=== PATIENT | male | born 1930 | race Caucasian/White ===

== ENCOUNTER 2017-04-25 16:33 | Emergency (ER) | payer MEDICARE, OTHER ==
[2017-04-25 17:07] LABS: #Basophils 0.1 thou/uL (0.0-0.2); #Eosinphils 0.2 thou/uL (0.0-0.7); #Monocytes 0.4 thou/uL (0.11-0.59); #Neutrophils 4.7 thou/uL (1.40-6.50); %Eosinophils 3.2 % (0.0-10.0); %Lymphocytes 26.9 % (21.0-51.0); %Monocytes 4.8 % (0.0-10.0); Hematocrit 34.1 % (42.0-52.0); Mean Platelet Volume 6.3 fL (7.4-10.4); Red Blood Cell (RBC) Count 3.62 mill/uL (4.70-6.10); White Blood Cell (WBC) Count 7.3 thou/uL (4.8-10.8)
[2017-04-25 17:18] LABS: Lactic Acid - Sepsis 2.1 mmol/L (0.5-2.2)
[2017-04-25 17:23] LABS: ALT (SGPT) 18 U/L (8-55); AST (SGOT) 21 U/L (5-34); Alkaline Phosphatase 67 U/L (40-150); Anion Gap 15 mmol/L (10-20); BUN (Urea Nitrogen) 15 mg/dL (8.4-25.7); Bilirubin, Total 0.5 mg/dL (0.2-1.2); CK (CPK) 55 U/L (30-200); Calc. Creatinine Clearance 0 mL/min (70-130); Calcium 8.9 mg/dL (7.8-10.44); Carbon Dioxide 21 mmol/L (23-31); Chloride 108 mmol/L (98-107); Estimated GFR-MDRD 73; Globulin 3.2 g/dL (2.4-3.5)
[2017-04-25 17:24] LABS: Troponin I 0.013 ng/mL (< 0.028)
--- NOTE | 2017-04-25 17:55 | RAD ---
PA AND LATERAL VIEWS OF CHEST: DATE: 04/25/2017 COMPARISON: Previous exam from 07/07/2013. HISTORY: Dyspnea. FINDINGS: PA and lateral views of the chest demonstrate some cardiomegaly. Calcification of the aorta is seen . Mild to moderate pulmonary vascular congestion is seen. No evidence of effusions seen. IMPRESSION: Calcification of the aorta as well as pulmonary vascular congestion. POS: [facility]
== END 2017-04-25 18:07 | disposition home or self-care (01) ==
LOC: SCSER 16:33
DX: R07.89 Other chest pain (principal); I11.0 Hypertensive heart disease with heart failure; I50.9 Heart failure, unspecified; I48.91 Unspecified atrial fibrillation; E11.42 Type 2 diabetes mellitus with diabetic polyneuropathy; E78.5 Hyperlipidemia, unspecified; Z92.3 Personal history of irradiation; Z86.73 Personal history of transient ischemic attack (TIA), and cerebral infarction without residual deficits; Z85.46 Personal history of malignant neoplasm of prostate; Z87.891 Personal history of nicotine dependence; Z79.82 Long term (current) use of aspirin; Z79.899 Other long term (current) drug therapy
CPT/HCPCS: 36415; 71020; 80053; 82553; 83605; 83880; 84484; 85025; 87040; 93005; 94760

== ENCOUNTER → 2017-06-04 | Outpatient (CLI) | payer MEDICARE, OTHER | LOC: BICMAMMO 15:12 | DX: N64.4 Mastodynia (principal) | CPT/HCPCS: G0204; G0279; 77066 ==

== ENCOUNTER 2018-04-11 12:42 | Outpatient (CLI) | payer MEDICARE, OTHER ==
--- NOTE | 2018-04-11 14:55 | CT ---
CT OF ABDOMEN PERFORMED WITHOUT CONTRAST ENHANCEMENT: Date: 04/11/18 HISTORY: Follow-up of aneurysm. COMPARISON: 05/12/16. FINDINGS: The lung bases show some emphysematous type change. The liver, spleen, and pancreas regions show no focal abnormalities. Gallbladder has been removed. Right and left adrenal glands are normal in size and appearance. Right and left kidneys are not obstr ucted and normal in size. There is no significant periaortic or mesenteric adenopathy. The slightly saccular aneurysm of the infrarenal aorta, which has a focal saccular outpouching from t he anterior and more right margin of the aorta is stable in appearance as compared to the prior exami [facility] [place]. The maximum measurement is 3.1 cm. This occurs just below the level of the right renal artery and the aorta is normal in caliber, densely calcified below this level. IMPRESSION: 1. Stable saccular infrarenal abdominal aortic aneurysm. 2. Extensive atherosclerosis. POS: [facility]
== END 2018-04-11 12:43 | disposition home or self-care (01) ==
LOC: CT 12:42
PROVIDERS: ATTEND Thoracic Surgery (Cardiothoracic Vascular Surgery)
DX: I71.4 Abdominal aortic aneurysm, without rupture (principal); I70.90 Unspecified atherosclerosis
CPT/HCPCS: 74150

== ENCOUNTER 2018-06-14 13:42 | Outpatient (CLI) | payer MEDICARE, OTHER ==
--- NOTE | 2018-06-14 15:57 | RAD ---
ABDOMEN 1 VIEW: Date: 06/14/18 HISTORY: Diarrhea. Constipation. Abdominal pain. COMPARISON: CT dated 04/11/18. FINDINGS: Evaluation for free air is limited without upright examination. There are no dilated air-filled loops of large or small bowel. Moderate vascular calcifications. Moderate facet arthropathy lower lumbar spine. Right upper quadrant surgical clips. Dense calcifications of the splenic artery. IMPRESSION: No acute intra-abdominal process. No abnormal calcifications projecting over the renal shadows. POS: [facility]
== END 2018-06-14 13:43 | disposition home or self-care (01) ==
LOC: SCSRAD 13:42
PROVIDERS: ATTEND Internal Medicine Gastroenterology
DX: R15.0 Incomplete defecation (principal); R15.2 Fecal urgency
CPT/HCPCS: 74018

== ENCOUNTER 2018-12-05 13:43 | Outpatient (CLI) | payer MEDICARE, OTHER ==
--- NOTE | 2018-12-05 15:05 | CT ---
Exam: ABDOMEN CT WITHOUT CONTRAST: HISTORY: Abdominal aortic aneurysm, without rupture. COMPARISON: 04/11/2018. FINDINGS: Abdomen CT: Lung bases:Patchy groundglass opacities and interstitial prominence may represent a component of marylin a. Heart size: Normal size. Aorta: Atherosclerosis throughout the visualized aorta and aortic bifurcation. There is atheroscleros is of the splenic artery. Dense calcified plaque in both renal artery ostia as well as the proximal right renal artery. Limited and incomplete evaluation due to technique. There is focal outpouching wi th calcification involving the distal abdominal aorta. There appears to be an associated saccular aneurysm. The aneurysmal component measures 1.4 cm mediolateral x 1 cm anterior posterior x 2.5 cm cr anial caudal. No significant change. Solid organs: Limited evaluation by technique. Grossly, no solid organ abnormality. Lymph nodes: No gastrohepatic, retrocrural or periportal lymphadenopathy Gallbladder: Surgically absent. Mesentery: No mass, lymphadenopathy, free air or free fluid Kidneys: Bilaterally no hydronephrosis, nephrolithiasis or perinephric fat stranding. Bilateral visua lized ureters are unremarkable. Alimentary canal: Incomplete evaluation. Limited evaluation due to technique. No evidence of bowel ob struction. Osseous structures: No lytic or blastic lesions IMPRESSION: 1. Essentially stable saccular aneurysm involving the infrarenal abdominal aorta. 2. Extensive atherosclerosis. Transcribed Date/Time: 12/05/2018 3:12 PM
--- NOTE | 2018-12-05 16:37 | ULT ---
EXAM: CAROTID ULTRASOUND: 12/05/18 HISTORY: Occlusion/stenosis of precerebral artery. COMPARISON: None. TECHNIQUE: Cornell scale, color flow, Doppler imaging with spectral waveform analysis performed in the carotid and vertebral arteries. FINDINGS: Exam is extremely limited by body habitus, conditioning and patient position. FINDINGS: RIGHT CAROTID: Small amounts of atherosclerosis in the common carotid artery. Peak systolic velocity of the common carotid artery is 72.7 cm/s. Peak systolic velocity internal carotid artery is 175 cm/ s. Systolic ICA to CCA ratio is 2.4. LEFT CAROTID: There is atherosclerotic disease involving the common carotid and carotid bifurcation. Peak systolic velocity of the common carotid artery is 98.8 cm/s. Peak systolic velocity of the inter nal carotid artery is 87.8 cm/s. Systolic ICA to CCA ratio is 0.89. Neither vertebral artery is appreciated. IMPRESSION: 1. 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 Further evaluation with CT angiogram of the neck is recommended. 2. Nonvisualization of bilateral vertebral arteries. POS: [facility]
== END 2018-12-05 13:44 | disposition home or self-care (01) ==
LOC: BICULT 13:43
PROVIDERS: ATTEND Thoracic Surgery (Cardiothoracic Vascular Surgery)
DX: I65.8 Occlusion and stenosis of other precerebral arteries (principal); I71.4 Abdominal aortic aneurysm, without rupture; I10 Essential (primary) hypertension; I70.0 Atherosclerosis of aorta; I65.21 Occlusion and stenosis of right carotid artery
CPT/HCPCS: 74150; 93880

== ENCOUNTER 2019-03-14 17:17 | Inpatient (IN) | payer MEDICARE, OTHER ==
[~2019-03-14 17:17] MED LIST: ISOVUE-370 76%-LOCM 1 ML ONE
[2019-03-14] MEDS ORDERED: Furosemide 40 MG/4 ML VIAL ONE (17:29)
[2019-03-14 17:41] LABS: #Basophils 0.1 thou/uL (0.0-0.2); #Eosinphils 0.3 thou/uL (0.0-0.7); #Lymphocytes 2.3 thou/uL (1.20-3.40); #Monocytes 0.4 thou/uL (0.11-0.59); #Neutrophils 8.2 thou/uL (1.40-6.50); %Basophils 0.6 % (0.0-1.0); %Eosinophils 2.3 % (0.0-10.0); %Lymphocytes 20.2 % (21.0-51.0); %Monocytes 3.9 % (0.0-10.0); %Neutrophils 72.9 % (42.0-75.0); Hemoglobin 13.5 g/dL (14.0-18.0); Mean Corpuscular HGB CONC 34.1 g/dL (32.0-36.0); Mean Corpuscular Hemoglobin 31.9 pg (27.0-31.0); Mean Corpuscular Volume 93.5 fL (78.0-98.0); Mean Platelet Volume 7.3 fL (7.4-10.4); Platelet Count 214 thou/uL (130-400); RBC Distribution Width 13.4 % (11.5-14.5); Red Blood Cell (RBC) Count 4.23 mill/uL (4.70-6.10); White Blood Cell (WBC) Count 11.3 thou/uL (4.8-10.8)
--- NOTE | 2019-03-14 17:48 | RAD ---
PORTABLE CHEST: 03/14/19 COMPARISON: A 06/06/17 study. HISTORY: Respiratory distress. Shortness of breath. Heart size is enlarged. There are atherosclerotic changes of the aorta. Chronic appearing lung change s are seen. Some of the right infrahilar parenchymal changes are more prominent than on the 2017 exam . IMPRESSION: 1. Cardiomegaly with severe chronic lung change. 2. Slightly more prominent right infrahilar lung markings. This could indicate a minimal infiltr ate. It could just be a progression of the scarring since the 2017 study. POS: [facility]
[2019-03-14 18:06] LABS: ALT (SGPT) 23 U/L (8-55); AST (SGOT) 38 U/L (5-34); Acetaminophen Less than 6.0 mcg/mL (10.0-30.0); Albumin 3.7 g/dL (3.4-4.8); Alcohol Less than 10 mg/dL (Less than 10); Alkaline Phosphatase 98 U/L (40-150); Anion Gap 15 mmol/L (10-20); BUN (Urea Nitrogen) 18 mg/dL (8.4-25.7); Bilirubin, Total 0.6 mg/dL (0.2-1.2); Calc. Creatinine Clearance 0 mL/min (70-130); Calcium 8.7 mg/dL (7.8-10.44); Carbon Dioxide 22 mmol/L (23-31); Chloride 105 mmol/L (98-107); Estimated GFR-MDRD 70; Globulin 3.1 g/dL (2.4-3.5); Glucose 267 mg/dL (83-110); Magnesium 1.4 mg/dL (1.6-2.6); Potassium 4.2 mmol/L (3.5-5.1); Protein, Total 6.8 g/dL (5.8-8.1); Salicylate Less than 8.0 mg/dL (15.0-30.0); Sodium 138 mmol/L (136-145)
[2019-03-14 18:34] LABS: Actual Bicarbonate (HCO3a) 20.5 mEq/L (22-28); Analyzer IN Cardio ER; Base Excess (BEa) -3.6 mEq/L (-2.0 to +3.0); CO2 Tension 34.3 mmHg (35.0-45.0); Calcium, Ionized 1.12 mmol/L (1.12-1.30); Carboxyhemoglobin (COHb) 0.5 gm% (0.0-3.0); Hemoglobin (Hb) 13.5 g/dL (14.0-18.0); O2 Tension (PaO2) 84.2 mmHg (> 60.0); pH, Arterial 7.39 (7.35-7.45)
[2019-03-14 18:37] LABS: Puncture Site RRA
[2019-03-14 18:38] LABS: ALV-art Gradient 86.825 (0-20)
[2019-03-14] MEDS ORDERED: cefTRIAXone\\ROCEPHIN 1 GM VIAL ONE (18:59)
[2019-03-14] MEDS ORDERED: Magnesium 2 GM/50 ML BAG (IN WATER) ONE (18:59)
[2019-03-14] MEDS ORDERED: Pantoprazole 80 MG in Sodium Chloride 0.9% 100 ML IVPB SCH (19:15)
[2019-03-14 19:17] LABS: Bacteria/HPF None Seen HPF (None Seen); Bilirubin Negative (Negative); Blood, Urine Negative (Negative); Clarity Clear (Clear); Glucose, Urine (Dipstick) 100 mg/dL (Negative); Leukocyte Negative Leu/uL (Negative); Nitrite Negative (Negative); Protein, Urine (Dipstick) 70 mg/dL (Neg-Trace); RBC/HPF 0-3 HPF (0-3); Squamous Epithelial 0-3 HPF (0-3); Urobilinogen Normal mg/dL (Less than 2); WBC/HPF 0-3 HPF (0-3)
[2019-03-14 19:26] LABS: Amphetamine Not Detected (NotDetected); Barbiturates Screen Not Detected (NotDetected); Benzodiazepine Screen Not Detected (NotDetected); Cocaine Metabolite Screen Not Detected (NotDetected); Medtox Control Line Valid? VALID (VALID); Medtox Reader # READER 1; Methadone Not Detected (NotDetected); Methamphetamine Not Detected (NotDetected); Opiate Screen Not Detected (NotDetected); Oxycodone Screen Not Detected (NotDetected); Phencyclidine (PCP) Not Detected (NotDetected); THC/Cannabinoid Screen Not Detected (NotDetected); Tricyclic Screen Not Detected (NotDetected)
--- NOTE | 2019-03-14 20:06 | CT ---
CT ANGIO OF CHEST PERFORMED WITH INTRAVENOUS CONTRAST ENHANCEMENT WITH 3D RECONSTRUCTIONS: 03/14/19 HISTORY: Shortness of breath since this morning. There are moderate bilateral pleural effusions present. There is some bibasilar atelectatic lung baez ges seen. The thoracic aorta is normal in caliber. There is no significant mediastinal or hilar lymphadenopathy . There is good pulmonary artery opacification, there is no CT evidence for pulmonary embolus. The visualized liver parenchyma is normal. IMPRESSION: 1. Moderate bilateral pleural effusions. 2. No CT evidence of pulmonary embolus. POS: [facility]
--- NOTE | 2019-03-14 20:10 | CT ---
CT OF ABDOMEN AND PELVIS PERFORMED WITH INTRAVENOUS CONTRAST ENHANCEMENT: 03/14/19 HISTORY: Shortness of breath and mild lower abdominal pain. Moderate bilateral pleural effusions are again demonstrated with some bibasilar atelectatic lung baez ge. Coronary calcifications are noted. The liver and spleen show no focal abnormalities. The liver measures 21 cm in length. The spleen sandhya ures 12.9 cm. Pancreas is atrophic. The gallbladder has been removed. Right and left adrenal glands and right and left kidneys are normal. No significant periaortic or mes enteric adenopathy. CT OF PELVIS PERFORMED WITH CONTRAST ENHANCEMENT: No evidence of adenopathy, mass or free fluid. There are arthritic changes of the spine and the bones appear somewhat demineralized. IMPRESSION: 1. Moderate bilateral pleural effusions. 2. Borderline liver and spleen size. Suggestion of possibly some element of fatty change to the liver. POS: [facility]
[2019-03-14 20:50] LABS: Hemoglobin 12.8 g/dL (14.0-18.0)
[2019-03-14] MEDS ORDERED: Sodium Chloride 0.9% 1,000 ML IV SCH (21:30)
--- NOTE | 2019-03-14 21:46 | PDOC.EVN ---
Event Note - Event Note Event Note: H&P [id number]
[2019-03-15 01:28] LABS: #Basophils 0.1 thou/uL (0.0-0.2); #Eosinphils 0.1 thou/uL (0.0-0.7); #Monocytes 0.5 thou/uL (0.11-0.59); #Neutrophils 6.4 thou/uL (1.40-6.50); %Basophils 0.6 % (0.0-1.0); %Eosinophils 0.7 % (0.0-10.0); %Lymphocytes 22.5 % (21.0-51.0); %Neutrophils 71.1 % (42.0-75.0); Hemoglobin 11.7 g/dL (14.0-18.0); Mean Corpuscular HGB CONC 34.1 g/dL (32.0-36.0); Mean Corpuscular Hemoglobin 31.9 pg (27.0-31.0); Mean Corpuscular Volume 93.5 fL (78.0-98.0); Mean Platelet Volume 7.5 fL (7.4-10.4); Platelet Count 166 thou/uL (130-400); RBC Distribution Width 13.6 % (11.5-14.5); Red Blood Cell (RBC) Count 3.66 mill/uL (4.70-6.10); White Blood Cell (WBC) Count 9.1 thou/uL (4.8-10.8)
--- NOTE | 2019-03-15 03:44 | HP ---
CHIEF COMPLAINT: Shortness of breath. HISTORY OF PRESENT ILLNESS: Mr. Pfeiffer is an 88-year-old male with past medical history of congestive heart failure, cardiac arrhythmias, atrial fibrillation, diabetes, peripheral neuropathy, CVA, hyperlipidemia, among others, was brought to the emergency room by EMS with chief complaint of shortness of breath that started this morning. As per EMS, the patient was found to be in possible flash pulmonary edema. The patient was placed on CPAP? He was on continuous nebulizer treatments on the way to the ER. In the emergency room, the patient was given one dose of IV Lasix 40 mg x1 with some improvement in his work of breathing. Currently, the patient is on face mask. Also, the patient was found to have dark/black stools. The patient was given one dose of IV pantoprazole. The patient is going to be admitted to the [facility] for further management. PAST MEDICAL HISTORY: Includes diabetes, congestive heart failure, hyperlipidemia, hypertension, cardiac arrhythmias, squamous cell carcinoma of the skin, neuropathy, CVA. PAST SURGICAL HISTORY: Skin cancer removal from the left ear, hemorrhoid surgery x2, appendectomy, cholecystectomy, orthopedic surgery, bilateral shoulders. SOCIAL HISTORY: The patient drinks socially, he is a former smoker. FAMILY HISTORY: Reviewed and noncontributory. HOME MEDICATIONS: Please see home medication reconciliation form for updated medications. ALLERGIES: NO KNOWN ALLERGIES. REVIEW OF SYSTEMS: Review of 14 systems negative except what is mentioned in history of present illness. PHYSICAL EXAMINATION: GENERAL: The patient is awake, alert, in moderate respiratory distress. HEAD: Normocephalic, atraumatic. NECK: Supple. CHEST: Few bibasilar crackles. HEART: Irregular. ABDOMEN: Obese, soft. Bowel sounds present. NEUROLOGIC: Awake, alert, oriented x3. PSYCHIATRIC: Normal mood. EXTREMITIES: Chronic skin changes/pigmentation. PSYCHIATRIC: Unable to assess. LABORATORY DATA: ABG; pH 7.39, pCO2 34, PO2 84. This was done on BiPAP. Chest x-ray showed cardiomegaly with severe chronic changes, with prominent infrahilar lung markings. D-dimer is 1.2. Stool for occult blood is positive. Beta natriuretic peptide is elevated at 712. WBC count is 11.3, hemoglobin 13.5, platelets 214. Magnesium is 1.4. ASSESSMENT: 1. Acute respiratory failure, probably secondary to flash pulmonary edema. 2. Acute pulmonary edema, acute over chronic congestive heart failure. 3. Acute gastrointestinal bleeding, upper, cardiac arrhythmias, diabetes, hypertension, history of cerebrovascular accident. PLAN: 1. Admit to IMCU. 2. Keep the patient n.p.o. for now until patient's condition stabilized. 3. Oxygen to keep saturation more than 92%. 4. IV proton pump inhibitor. 5. Consult GI for evaluation and further recommendations, possible endoscopy in a.m. 6. Cautious fluid management given patient's complicated presentation with flash pulmonary edema/GI bleeding. 7. Reconcile home medications. 8. Deep venous thrombosis prophylaxis with SCDs. 9. Expected length of stay 3 midnights or more. 10. Case discussed with the patient, patient's family, and the ED physician. Job ID: [id number]
[2019-03-15 06:44] LABS: Anion Gap 11 mmol/L (10-20); BUN (Urea Nitrogen) 17 mg/dL (8.4-25.7); Calc. Creatinine Clearance 82 mL/min (70-130); Calcium 8.5 mg/dL (7.8-10.44); Carbon Dioxide 23 mmol/L (23-31); Chloride 106 mmol/L (98-107); Estimated GFR-MDRD 72; Glucose 230 mg/dL (83-110); Potassium 3.7 mmol/L (3.5-5.1); Sodium 136 mmol/L (136-145)
[2019-03-15] MEDS ORDERED: Dextrose 50% Abboject 50 ML SYRINGE SLOW IVP PRN (07:41)
[2019-03-15] MEDS ORDERED: Dextrose 5% in Water 1,000 ML IV PRN (07:41)
[2019-03-15] MEDS ORDERED: Melatonin 3 MG TAB PO PRN (07:46)
[2019-03-15] MEDS ORDERED: Furosemide 20 MG/2 ML VIAL SLOW IVP SCH ×2 (08:00→14:00)
--- NOTE | 2019-03-15 08:43 | PRG ---
DATE OF SERVICE: 03/15/2019 SUBJECTIVE: The patient is seen and examined at the bedside. He is feeling significantly better. His respirations improved. He is not as short of breath as he was yesterday. OBJECTIVE: VITAL SIGNS: Blood pressure is 153/77, pulse is 81, temperature is 97.0, respirations are 19, O2 saturation is 98% on nasal cannula. HEENT: His head is atraumatic and normocephalic. Eyes are PERRLA. Sclerae are nonicteric. Conjunctivae, palish. Oral mucosa is somewhat dry. NECK: Supple. LUNGS: Breath sounds diminished at both bases with bilateral crackles at both bases. HEART: S1 and S2 normal. No S3. No S4. No any murmur. ABDOMEN: Soft, nontender, nondistended. Obese. EXTREMITIES: 1+ peripheral edema, similar bilateral on both lower extremities. NEUROLOGICAL: He follows my commands. He is hard of hearing. He moves his all 4 extremities. There is no any motor or sensory deficits. LABORATORY DATA: Labs showed white count of 9.1, hemoglobin is 11.7, hematocrit is 34.2, platelet count is 166,000. Normal electrolytes, normal BUN, creatinine 0.98, glucose 230, calcium 8.5. IMAGING STUDIES: Chest x-ray done this morning showed significant improvement of pulmonary edema. IMPRESSION: 1. Congestive heart failure. For diagnostic workup, according to the admitting note, he has a history of congestive heart failure in the past and cardiac arrhythmias. His hot wound spring production supervisor is Dr. Beyer. 2. Black tarry stools and suspicion for gastrointestinal blood loss. The patient is not showing any bernie bleeding during my visit. He is n.p.o. We will get a lead customer service representative to see him today. His hemoglobin dropped from a 13.5 to 11.7, but hemodynamically he is stable. 3. Acute respiratory failure secondary to flash pulmonary edema. 4. History of diabetes mellitus. We will check his Accu-Chek's every 6 hours and keep him on n.p.o. 5. Hyperlipidemia. 6. Hypertension. 7. History of cerebrovascular accident. 8. History of cardiac arrhythmias. We will restart his atenolol 25 mg daily, and we will start him on furosemide 20 mg IV push every 12 hours. I will continue his venlafaxine 37.5 mg once a day and melatonin at night. The rest of his home medications will be on hold for now. We will continue DVT prophylaxis with SCDs. Job ID: [id number]
--- NOTE | 2019-03-15 09:45 | RAD ---
PORTABLE CHEST: Date: 03/15/19 INDICATION: Pulmonary edema. COMPARISON: 03/14/19. FINDINGS/IMPRESSION: Mild cardiomegaly. Vascular and interstitial congestion. Findings are consistent with diffuse interst itial and early alveolar edema pattern. No consolidation or significant effusion. POS: [facility]
[2019-03-15] MEDS: Atenolol 25 MG TAB PO SCH (09:53)
[2019-03-15] MEDS: Potassium Chloride 20 MEQ TAB PO SCH (09:53)
[2019-03-15] MEDS: Venlafaxine XR 37.5 MG CAP PO SCH (09:54)
[2019-03-15] MEDS: Pantoprazole 40 MG VIAL IVP SCH ×2 (09:54→20:42)
[2019-03-15] MEDS: HumaLOG 300 UNITS/3 ML VIAL SC PRN (12:22)
[2019-03-15] MEDS ORDERED: Magnesium 2 GM/50 ML 2 GM in Premix Bag 1 BAG IVPB SCH (14:15)
[2019-03-15] MEDS: Furosemide 20 MG/2 ML VIAL SLOW IVP SCH (15:30)
--- NOTE | 2019-03-15 15:46 | CON ---
DATE OF CONSULTATION: 03/15/2019 SERVICE: Pulmonary Medicine. REASON FOR CONSULTATION: ICU patient. HISTORY OF PRESENT ILLNESS: The patient is an 88-year-old white male with past medical history significant for some degree of heart failure. He presents to the hospital because he was recently on a trip. He went to the [facility], and then he went to [place]. In [place], he binge ate on seafood. With this, he had a huge salt load. He actually traveled back from [place] to [place] over the last couple of days. He went to sleep and everything was fine and he woke up acutely short winded. He called EMS Services and was brought to the hospital. He was initiated on noninvasive ventilation, and given some Lasix. With these interventions, he had a significant improvement in respiratory function. He has been off the BiPAP since late last night. He denies any current fevers, chills, nausea, or vomiting. He was not sick prior to this event. He does not have any sick contacts. He denies having any nausea. He has chronic diarrhea. This may be secondary to Splenda. Otherwise, he has no specific complaints. He is just happy that he has improved so much. PAST MEDICAL HISTORY: 1. Type 2 diabetes mellitus. 2. Chronic systolic and diastolic heart failure. 3. Dyslipidemia. 4. Hypertension. 5. Squamous cell carcinoma of the skin. 6. COPD, moderate. 7. Neuropathy. 8. History of CVA. PAST SURGICAL HISTORY: 1. Excision of skin cancer from ear. 2. Hemorrhoidectomy. 3. Appendectomy. 4. Cholecystectomy. 5. Shoulder surgeries, bilateral. SOCIAL HISTORY: The patient drinks socially. He has a greater than 40 pack- year history of smoking. He denies any street drugs. He has no exposure to chemicals, dust, asbestos, or tuberculosis. FAMILY HISTORY: Noncontributory. ALLERGIES: NO KNOWN DRUG ALLERGIES. MEDICATIONS: List of his inpatient medications was reviewed. No specific updates were made at this time. REVIEW OF SYSTEMS: General, head, ears, eyes, nose, throat, cardiovascular, respiratory, GI, , musculoskeletal, neurologic, and skin are negative, except as mentioned in the HPI. PHYSICAL EXAMINATION: VITAL SIGNS: Afebrile, pulse 55, blood pressure 154/83, respirations 23, and saturation 97%, currently on 2 L nasal cannula. GENERAL: The patient is awake and alert, in no apparent distress. LUNGS: Good air entry. There are subtle crackles in the left base. There are more prominent crackles in the right base. There is no prolonged expiratory phase or wheezing appreciated. HEART: Bradycardic. Regular. ABDOMEN: Soft, nontender, and nondistended. Bowel sounds are positive. MUSCULOSKELETAL: No cyanosis or clubbing. There is trace pitting in the bilateral lower extremities. NEUROLOGIC: Grossly nonfocal. LABORATORY DATA: Hemoglobin 11.7. CBC is otherwise unremarkable. D-dimer 1.26. The pH 7.39, pCO2 34, and pO2 84 on 30% FiO2 at that time. Basic metabolic profile is unremarkable. Magnesium 1.8. Troponin is below the assay limit of 0.01. TSH of 4.2. Liver function studies are essentially unremarkable. Original BNP is 712, which represents a historic high. Urinalysis is unremarkable. Urine drug screen, salicylates, acetaminophen, and alcohol are all unremarkable. Occult blood was positive. IMAGING STUDIES: Chest x-ray demonstrates pulmonary vascular congestion and enlarged cardiac silhouette. Interstitial lung changes throughout bilateral lung boyle. CTA of the chest demonstrates no evidence of a pulmonary embolism. Mild pleural effusions are present. Ground-glass opacifications ground layer throughout the lung boyle, they are more impressively located in the dependent regions of the lung. Minimal atelectasis is present. I do not see anything that looks like a pneumonia. ASSESSMENT: 1. Acute hypoxic respiratory failure. 2. Chronic obstructive pulmonary disease without current exacerbation. 3. Acute on chronic systolic and diastolic heart failure. DISCUSSION AND PLAN: We will continue to diurese the patient to euvolemia. At this point, he is stable for transition out of the ICU to the telemetry unit. I will have Physical Therapy work with this patient while he is here in the hospital to prevent further deconditioning. 70 minutes have been devoted to this patient in various activities. I personally reviewed all imaging studies and laboratory data noted within this document. For fifty percent of this time, I was interacting with the patient at the bedside or coordinating care with the care team. For the remainder of the time I was immediately available to the patient in the hospital unit. Job ID: [id number] [id number]
--- NOTE | 2019-03-15 15:57 | EKG ---
Test Reason : DYSRHYTHMIA Blood Pressure : / mmHG Vent. Rate : 104 BPM Atrial Rate : 104 BPM P-R Int : 000 ms QRS Dur : 152 ms QT Int : 404 ms P-R-T Axes : 000 -29 129 degrees QTc Int : 531 ms Sinus tachycardia with short ND Left bundle branch block Abnormal ECG Confirmed by ASHLEY GUPTA ([id number]), greeting card editor DINAH BARNES ([id number]) on 03/15/2019 3:56:56 PM Referred By: CANDY Confirmed By:ASHLEY GUPTA
--- NOTE | 2019-03-15 22:09 | CON ---
DATE OF CONSULTATION: 03/15/2019 CHIEF COMPLAINT: Shortness of breath. HISTORY OF PRESENT ILLNESS: Mr. Pfeiffer is an 88-year-old man, who was admitted to the emergency room with pulmonary edema. He was given Lasix with improvement in his shortness of breath. He did have some epigastric abdominal discomfort that is currently doing better. He has had no nausea or vomiting. He has had chronic problems with intermittent constipation and had to go the ER with a stool impaction in [place] back in November. In between, he has problems with chronic diarrhea with loss of continence that has kept him from being able to get out of the house. He has previously improved his diarrhea episodes by avoiding lactose, and then, that ultimately did not resolve the problem and then, he was found to be taking large amounts of Splenda and that was cut out. It still sounds like more recently his diarrhea has been an intermittent problem due to loss of continence. He does not have necessarily daily bowel movements. The stools when they come are not frequent. He can pass a formed stool and then 30 minutes later have an urgent watery bowel movement. GI was consulted because the patient was reportedly noted to have had a dark or black stool, which was noted by EMS when he was picked up at the home and dark stool by rectal exam in the ER. The patient has had no bowel movement today. PAST MEDICAL HISTORY: Diabetes mellitus, on insulin; congestive heart failure; hyperlipidemia; hypertension; stroke; neuropathy; he has had a squamous cell carcinoma; cardiac arrhythmia. PAST SURGICAL HISTORY: Appendectomy, cholecystectomy, shoulder surgery, EGD and colonoscopy [address] Fierro at [facility]. He has had a skin cancer removed from his ear. FAMILY HISTORY: Negative for GI malignancy. SOCIAL HISTORY: Rare alcohol use. He quit smoking in the distant past. No drugs. ALLERGIES: NO KNOWN DRUG ALLERGIES. MEDICATIONS: Prior to admission includes, 1. Meloxicam 7.5 mg daily. 2. Aspirin 81 mg daily. 3. He is taking flaxseed oil. 4. Folic acid. 5. Potassium. 6. Cetirizine. 7. Trazodone. 8. Calcium carbonate. 9. Venlafaxine. 10. Melatonin. 11. A digestive enzyme. 12. Insulin. 13. Fish oil. 14. Furosemide. 15. Vitamin D. 16. Vitamin B12. 17. Omeprazole 20 mg daily. 18. Amlodipine. REVIEW OF SYSTEMS: Negative x10 systems reviewed, except as stated in the history of present illness. PHYSICAL EXAMINATION: VITAL SIGNS: Temperature 98.9, pulse 55, blood pressure 165/71. GENERAL: He is in no acute distress. He is alert and oriented x3, but tachypneic. LUNGS: Clear to auscultation bilaterally. HEART: Regular rate and rhythm without murmur. ABDOMEN: Soft, nontender, and nondistended. Bowel sounds are present. EXTREMITIES: Trace lower extremity edema. RECTAL: Reveals brown stool in the rectal vault. While I laid him flat to do the rectal exam, he did become short of breath and was having a productive cough of clear sputum. LABORATORY DATA: White blood cell count 9.1, hemoglobin 11.7, platelets 166. Creatinine 0.98. IMPRESSION: 1. Shortness of breath with pulmonary edema and congestive heart failure. He has improved with furosemide; however, he is still tachypneic and he is on oxygen, and when I laid him flat for the rectal exam, he became more short of breath. This improved while I sat him back up. 2. Question of gastrointestinal bleed. Rectal exam now reveals brown stool in the rectal vault without obvious melena. He has had no bowel movement today otherwise. His hemoglobin has decreased slightly from 13.5 to 11.7. He has no sign of active bleeding now, and given his respiratory status, I would hold off endoscopy for now. He is at risk for peptic ulcer given the use of aspirin plus meloxicam. He is already on a proton pump inhibitor daily; however, so that should reduce the likelihood of ulcer. For now, the primary treatment will be higher dose of the proton pump inhibitor and avoidance of the meloxicam. He can use Tylenol for joint pain in the meantime. RECOMMENDATIONS: 1. Follow trend of his hemoglobin. 2. Proton pump inhibitor with pantoprazole 40 mg daily. 3. Advance his diet and recheck his hemoglobin tomorrow. If he is having no further overt bleeding, I think we can avoid endoscopy at this point. 4. Regarding his chronic intermittent constipation and diarrhea, I think the constipation likely is a larger part of the problem and he might end up needing a daily osmotic laxative plus fiber to help regulate his stools better. Still there are episodes of diarrhea and incontinence that get triggered often by dietary triggers with osmotic sweeteners, which he has stopped. This will be a long-term management issue, and he can follow back in the office with Dr. Stroud regarding that. Job ID: [id number]
[2019-03-15] MEDS: Ondansetron PF 4 MG/2 ML Vial IVP PRN (23:25)
[2019-03-16] MEDS: Furosemide 20 MG/2 ML VIAL SLOW IVP SCH ×2 (02:21→15:21)
[2019-03-16 03:55] LABS: #Basophils 0.1 thou/uL (0.0-0.2); #Eosinphils 0.1 thou/uL (0.0-0.7); #Lymphocytes 1.4 thou/uL (1.20-3.40); #Monocytes 0.4 thou/uL (0.11-0.59); #Neutrophils 8.8 thou/uL (1.40-6.50); %Basophils 0.5 % (0.0-1.0); %Eosinophils 1.1 % (0.0-10.0); %Lymphocytes 12.7 % (21.0-51.0); %Monocytes 3.8 % (0.0-10.0); %Neutrophils 81.9 % (42.0-75.0); Hemoglobin 12.9 g/dL (14.0-18.0); Mean Corpuscular HGB CONC 33.8 g/dL (32.0-36.0); Mean Corpuscular Hemoglobin 32.4 pg (27.0-31.0); Mean Corpuscular Volume 95.8 fL (78.0-98.0); Mean Platelet Volume 7.5 fL (7.4-10.4); Platelet Count 191 thou/uL (130-400); RBC Distribution Width 13.5 % (11.5-14.5); Red Blood Cell (RBC) Count 3.99 mill/uL (4.70-6.10); White Blood Cell (WBC) Count 10.7 thou/uL (4.8-10.8)
[2019-03-16 04:18] LABS: Phosphorus 3.3 mg/dL (2.3-4.7)
[2019-03-16 04:21] LABS: Anion Gap 16 mmol/L (10-20); BUN (Urea Nitrogen) 17 mg/dL (8.4-25.7); Calc. Creatinine Clearance 80 mL/min (70-130); Calcium 8.5 mg/dL (7.8-10.44); Carbon Dioxide 21 mmol/L (23-31); Chloride 105 mmol/L (98-107); Estimated GFR-MDRD 71; Glucose 318 mg/dL (83-110); Magnesium 1.9 mg/dL (1.6-2.6); Potassium 3.7 mmol/L (3.5-5.1); Sodium 138 mmol/L (136-145)
[2019-03-16] MEDS: HumaLOG 300 UNITS/3 ML VIAL SC PRN ×2 (05:38→10:28)
[2019-03-16] MEDS: Potassium Chloride 20 MEQ TAB PO SCH (10:27)
[2019-03-16] MEDS: Venlafaxine XR 37.5 MG CAP PO SCH (10:28)
[2019-03-16] MEDS: Atenolol 25 MG TAB PO SCH (10:28)
[2019-03-16] MEDS: Pantoprazole 40 MG VIAL IVP SCH ×2 (10:28→20:43)
--- NOTE | 2019-03-16 12:37 | PRG ---
DATE OF SERVICE: 03/16/2019 SUBJECTIVE: The patient is seen and examined at the bedside. He complains about several watery bowel movements in the last 24 hours. Apparently, he was constipated and he had several bowel movements. According to him, this happens quite often at home. He would like to address this issue with remote coders on the case. OBJECTIVE: VITAL SIGNS: Blood pressure is 147/80, pulse is 89, respiratory rate is 36, O2 saturation is 97%. HEENT: His head is atraumatic and normocephalic. His eyes are PERRLA. Sclerae are nonicteric. He has some labored breathing. He is hard hearing. LUNGS: Breath sounds diminished at both bases with bilateral crackles, more on the left than on the right, mild. ABDOMEN: Soft, nontender. Bowel sounds are present. HEART: S1 and S2 normal. EXTREMITIES: 1+ peripheral edema similar bilaterally on lower extremities. NEUROLOGIC: He follows my commands. He moves his all 4 extremities. There are no any motor or sensory deficits. LABORATORY DATA: Labs showed white count of 10.7, hemoglobin 12.9, hematocrit 38.2, platelet count is 191,000. Sodium of 138, potassium 3.6, chloride 105, CO2 of 21, BUN 17, creatinine 1.0, glycemia is ranging from 212 to 348, normal magnesium, normal phosphorus. Chest x-ray done yesterday showed mild cardiomegaly and vascular interstitial congestion. Findings were consistent with diffuse interstitial-alveolar edema pattern. IMPRESSION: 1. Congestive heart failure, started on Lasix yesterday, his urine output improved with high dose on Lasix offered by teaching fellow, Dr. Arias. 2. Black tarry stools. Positive for guaiac, and some watery diarrhea in the last 24 hours. No blood or tarry stools present. Hemoglobin is holding good, it is more than 12 today. 3. Acute respiratory failure secondary to flash pulmonary edema, on Lasix at this point. We will ask outside plant engineer to see the patient. 4. History of diabetes mellitus. We will start his insulin 70/30, 35 units subcutaneously every 12 hours. Continue his sliding scale and Accu-Cheks a.c. and at bedtime. 5. Hyperlipidemia. 6. Hypertension. 7. History of cerebrovascular accident. 8. History of cardiac arrhythmias. 9. Chronic constipation with on and off diarrhea to be addressed by Dr. Giron. We will restart his aspirin since he does not have more black stools anymore and start him on his home amlodipine and get Cardiology consult. Job ID: [id number]
--- NOTE | 2019-03-16 14:27 | CON ---
DATE OF CONSULTATION: 03/16/2019 REASON FOR CONSULTATION: Shortness of breath. HISTORY OF PRESENT ILLNESS: Mr. Pfeiffer is a very pleasant 88-year-old gentleman who is a patient of Dr. Pavel Beyer. He recently presented with increased shortness of breath. He states he was recently visiting in the [facility]. There was dietary indiscretion. He presented to the emergency room with increased shortness of breath requiring BiPAP. He is on nasal cannula. He continues to complain shortness of breath, but has improved. No chest pain, pressure, or associated symptoms. He also states he told he had atrial fibrillation, but according to the patient and Dr. Beyer, he did not require anticoagulation therapy. PAST MEDICAL HISTORY: Diastolic dysfunction, hyperlipidemia, hypertension, COPD, neuropathy, CVA, diabetes mellitus, appendectomy, cholecystectomy, shoulder surgery. SOCIAL HISTORY: A 30-pack per year history, quit in the . ALLERGIES: NONE. FAMILY HISTORY: Negative for CAD. HOME MEDICATIONS: 1. Mobic. 2. Flaxseed oil. 3. Benadryl. 4. Folic acid. 5. Potassium. 6. Sertraline. 7. Calcium. 8. Trazodone. 9. Venlafaxine. 10. Melatonin. 11. Insulin. 12. Vitamin D. 13. Prilosec. 14. Tenormin. 15. Aspirin. REVIEW OF SYSTEMS: A 10-point review of systems is reviewed as above, otherwise negative. PHYSICAL EXAMINATION: GENERAL: Patient is a pleasant male who is in no acute distress. The patient appears their stated age. VITAL SIGNS: Blood pressure 180/82, pulse 78, and temperature afebrile. NEUROLOGIC: The patient is alert and oriented x3 with no focal neurologic deficits. HEENT: Sclerae without icterus. Mouth has moist mucous membranes with normal pallor. NECK: No JVD. Carotid upstroke brisk. No bruits bilaterally. LUNGS: Clear to auscultation with unlabored respirations. BACK: No scoliosis or kyphosis. CARDIAC: Regular rate and rhythm with normal S1 and S2. No S3 or S4 noted. No significant rubs, murmurs, thrills, or gallops noted throughout the precordium. PMI is not displaced. There is no parasternal heave. ABDOMEN: Soft, nontender, nondistended. No peritoneal signs present. No hepatosplenomegaly. No abnormal striae. EXTREMITIES: 2+ femoral and 2+ dorsalis pedis pulses. No cyanosis, clubbing, or edema. SKIN: No gross abnormalities. EKG appears to show paced rhythm. IMPRESSION: 1. Shortness of breath. 2. Diastolic dysfunction. 3. Paced rhythm. 4. Chronic obstructive pulmonary disease. RECOMMENDATIONS: We will review his echo Doppler. Last echo in the office was in 2015. He does appear to be volume overloaded. Continue IV Lasix 40 mg b.i.d. Continue aspirin in addition to atenolol and amlodipine. We would recommend a more conservative approach for this patient. Further recommendation per Dr. Pavel Beyer in a.m. Job ID: [id number]
[2019-03-16] MEDS: Ondansetron PF 4 MG/2 ML Vial IVP PRN (15:18)
--- NOTE | 2019-03-16 15:18 | PRG ---
DATE OF SERVICE: 03/16/2019 SUBJECTIVE: Mr. Pfeiffer had several watery stools last night and this morning. He has had no abdominal pain with this. No nausea or vomiting. He has had no overt GI bleeding. The stools have been brown. OBJECTIVE: VITAL SIGNS: Temperature is 97.4, pulse 111, and blood pressure 180/82. GENERAL: He is in no acute distress. He is alert and oriented x3. LUNGS: Clear to auscultation bilaterally. He is tachypneic. HEART: Tachycardic. S1 and S2. ABDOMEN: Soft, nontender, and nondistended. EXTREMITIES: No lower extremity edema. LABORATORY DATA: White blood cell count 10.7, hemoglobin 12.9, and platelets 191. Creatinine 1.0. IMPRESSION: 1. Anemia. His hemoglobin is stable and in fact contracted somewhat with diuresis. He has no overt gastrointestinal bleeding at this point. 2. Long history of chronic diarrhea and intermittent episodes of constipation and loss of continence. I cannot see an obvious factor that triggered this episode of diarrhea. We will check stool studies. RECOMMENDATIONS: 1. We will send stool for C difficile, ova and parasite, culture and lactoferrin. 2. I will follow up tomorrow. Really, the diarrhea has been a longstanding issue and continue to be worked up further as an outpatient. Job ID: [id number]
[2019-03-16] MEDS: HumuLIN 70/30 (300 UNITS/3 ML VIAL) SC SCH (19:08)
[2019-03-16] MEDS ORDERED: Potassium Chloride 20 MEQ TAB PO SCH (20:15)
[2019-03-16] MEDS ORDERED: predniSONE 20 MG TAB PO SCH (20:15)
--- NOTE | 2019-03-16 20:43 | PRG ---
DATE OF SERVICE: 03/16/2019 SERVICE: Pulmonary Medicine. INTERVAL HISTORY: The patient is breathing comfortably. Earlier today, he had little bit of a breathing spell. He was wheezing. He was also having a coughing fit. He got a dose of Lasix nebulized medication. With this, he settled down very nicely. He denies any current fevers, chills, nausea, or vomiting. Otherwise, he feels like his strength is improving a little bit, but he remains quite weak. PHYSICAL EXAMINATION: VITAL SIGNS: Afebrile, pulse 94, blood pressure 131/88, respirations 25, and saturation 99% on 3 L nasal cannula. GENERAL: The patient is awake and alert, in no apparent distress. LUNGS: Very good air entry. No prolonged expiratory phase, wheezing or crackles are currently present. HEART: Normal rate, regular. ABDOMEN: Soft, nontender, nondistended. Bowel sounds are positive. MUSCULOSKELETAL: No cyanosis or clubbing. No pitting in the bilateral lower extremities. NEUROLOGIC: Grossly nonfocal. LABORATORY DATA: WBC 10.7, hemoglobin 12.9, platelets 191,000. Basic metabolic profile is completely unremarkable. His creatinine is stable. Magnesium and phosphorous fall within the normal limits. C. diff antigen and toxin are unremarkable. ASSESSMENT: 1. Acute hypoxic respiratory failure. 2. Chronic obstructive pulmonary disease with minimal exacerbation. 3. Acute on chronic systolic and diastolic heart failure. DISCUSSION AND PLAN: I will give the patient a 5-day course of low-dose steroids. I will schedule nebulized medications three times daily. From a purely respiratory standpoint, he could certainly go home on these interventions. Pulmonary will follow while he remains in-house. Job ID: [id number]
[2019-03-17 05:11] LABS: Hemoglobin 12.4 g/dL (14.0-18.0)
[2019-03-17 05:33] LABS: Anion Gap 10 mmol/L (10-20); BUN (Urea Nitrogen) 18 mg/dL (8.4-25.7); Calc. Creatinine Clearance 80 mL/min (70-130); Calcium 9.2 mg/dL (7.8-10.44); Carbon Dioxide 26 mmol/L (23-31); Chloride 103 mmol/L (98-107); Estimated GFR-MDRD 70; Glucose 297 mg/dL (83-110); Magnesium 1.9 mg/dL (1.6-2.6); Potassium 4.4 mmol/L (3.5-5.1); Sodium 135 mmol/L (136-145)
[2019-03-17] MEDS: Furosemide 20 MG/2 ML VIAL SLOW IVP SCH ×2 (06:08→15:20)
[2019-03-17] MEDS ORDERED: Amlodipine 10 MG TAB PO SCH (09:00)
--- NOTE | 2019-03-17 09:16 | PDOC.CPN ---
- Subjective Date: 03/17/19 Time: 09:27 Interval history: The pt seen and examined. No overnight events. No cardiac complaints. - Objective Allergies/Adverse Reactions: Allergies Allergy/AdvReac Type Severity Reaction Status Date / Time No Known Allergies Allergy Verified 07/07/13 14:33 Visit Medications: Current Medications Albuterol/Ipratropium (Duoneb) 3 ml NEB Q4H PRN PRN Reason: SOB &/or Wheezing Last Admin: 03/16/19 17:12 Dose: 3 ml Albuterol/Ipratropium (Duoneb) 3 ml NEB TID-RT [facility] Last Admin: 03/17/19 07:32 Dose: 3 ml Aspirin (Aspirin Chewable) 81 mg PO DAILY [facility] Carvedilol (Coreg) 12.5 mg PO BID-WM [facility] Dextrose/Water (Dextrose 50%) 25 gm SLOW IVP PRN PRN PRN Reason: Hypoglycemia Furosemide (Lasix) 40 mg SLOW IVP 0600,1400 [facility] Last Admin: 03/17/19 06:08 Dose: 40 mg Glucagon (Glucagon) 1 mg IM PRN PRN PRN Reason: Hypoglycemia Dextrose/Water (D5w) 1,000 mls @ 0 mls/hr IV .Q0M PRN PRN Reason: Hypoglycemia Insulin Human Isoph/Insulin Regular (Humulin 70/30) 35 units SC BID-[facility] Last Admin: 03/16/19 19:08 Dose: 35 unit Insulin Human Lispro (Humalog) 0 units SC .MILD SLIDING SCALE PRN PRN Reason: Mild Correctional Scale Last Admin: 03/16/19 10:28 Dose: 5 unit Lisinopril (Zestril) 10 mg PO BID [facility] Melatonin (Melatonin) 9 mg PO HSPRN PRN PRN Reason: Insomnia Last Admin: 03/16/19 22:56 Dose: 9 mg Ondansetron HCl (Zofran) 4 mg IVP Q6H PRN PRN Reason: Nausea/Vomiting Last Admin: 03/16/19 15:18 Dose: 4 mg Pantoprazole Sodium (Protonix) 40 mg IVP Q12HR [facility] Last Admin: 03/16/19 20:43 Dose: 40 mg Potassium Chloride (K-Dur) 40 meq PO QAM-WM [facility] Last Admin: 03/16/19 10:27 Dose: 40 meq Prednisone (Prednisone) 40 mg PO QAM-[facility] Stop: 03/20/19 08:01 Venlafaxine HCl (Effexor Xr) [facility] [place] [place] Last Admin: 03/16/19 10:28 Dose: 37.5 mg Vital Signs & Weight: Vital Signs Temp Pulse Resp BP Pulse Ox 03/17/19 07:35 97.3 F L 114 H 22 H 153/88 H 94 L 03/17/19 07:32 114 H 24 H 96 03/17/19 04:00 98.1 F 115 H 20 142/84 H 93 L Weight 226 lb 3.2 oz - Physical Exam General: alert & oriented x3 Neck: supple neck Cardiac: regular rate and rhythm, S1/S2 Lungs: decreased breath sounds Neuro: cranial nerve 2-12 intact Abdomen: active bowel sounds Musculoskeletal: decreased range of motion - Labs Result Diagrams: 03/17/19 04:42 03/17/19 04:42 Troponin/CKMB Troponin I Less than 0.010 ng/mL (< 0.028) 03/14/19 17:30 - Telemetry Sinus rhythms and dysrhythmias: sinus tachycardia (HR 100-110s) - Assessment/Plan Assessment/Plan: 1. Acute on Chronic Diastolic HF - stable with 2LNC; Atenolol was changed to Coreg for hx of CHF with higher dose for CHF, HTN and Tachycardia; Will start Lisinopril 10mg BID from this AM; On Lasix 40mg IV BID 2. HTN - Will stop Atenolol 25mg qd, start Coreg 12.5mg BID (Atenolol 25mg should be changed to Coreg 6.25mg BID; however, will start with dose of 12.5mg due to tachycarida); will stop Norvasc and changed to Lisinoprol 10mg BID of hx of CHF 3. DM type 2 - managed by PCP 4. HLD - not on statin 5. Hx of AAA - ABD CT in 11/2018 with 1.4x1x2.5cm aaa 6. Hx of Rt ECA in 2004 - last Carotid u/s was last year by Dr Austin per the pt 7. Sleep Apnea - may need Cpap at HS 8. Hx of Prostate Ca with radiation 9. Hx of CVA in 2004 - 10. Chronic diarrhea with s/p hematochezia - checking for C diff; managed by GI 11. Afib. HR still not well controlled. Increase betablockers as tolerated MAR reviewed * Echo on 03/14/2019 with EF 40-45%, mild MR and TR pt. seen tony hernández. by me. His daughter states that he was noncompliant on his fluid and sodium intake when he was in [place]. He seems to be improving but still has vol. overload. Continue diuretics.
[2019-03-17] MEDS ORDERED: Lisinopril 10 MG TAB PO SCH (09:45)
[2019-03-17] MEDS ORDERED: Carvedilol 6.25 MG TAB PO SCH (09:45)
[2019-03-17] MEDS: Aspirin Chewable 81 MG TAB PO SCH (10:02)
[2019-03-17] MEDS: Potassium Chloride 20 MEQ TAB PO SCH (10:02)
[2019-03-17] MEDS: Venlafaxine XR 37.5 MG CAP PO SCH (10:03)
[2019-03-17] MEDS: predniSONE 20 MG TAB PO SCH (10:03)
[2019-03-17] MEDS: HumuLIN 70/30 (300 UNITS/3 ML VIAL) SC SCH ×2 (10:04→16:10)
[2019-03-17] MEDS: Pantoprazole 40 MG VIAL IVP SCH ×2 (10:04→20:20)
[2019-03-17] MEDS: HumaLOG 300 UNITS/3 ML VIAL SC PRN ×2 (10:08→12:40)
[2019-03-17] MEDS: Atenolol 25 MG TAB PO SCH (10:11)
[2019-03-17] MEDS ORDERED: Dextrose 5% in Water 1,000 ML IV PRN (13:38)
[2019-03-17] MEDS ORDERED: Dextrose 50% Abboject 50 ML SYRINGE SLOW IVP PRN (13:38)
--- NOTE | 2019-03-17 13:40 | PRG ---
DATE OF SERVICE: 03/17/2019 SUBJECTIVE: Mr. Pfeiffer has no acute complaints today. He is breathing better. He had diarrhea yesterday. OBJECTIVE: VITAL SIGNS: Temperature is 99, pulse 110, blood pressure 125/66. GENERAL: He is in no acute distress. ABDOMEN: Soft, nontender, nondistended. Bowel sounds are present. IMPRESSION: Chronic diarrhea with intermittent incontinence. He has been evaluated for this extensively as an outpatient by Dr. Franklin. He has had repeat stool studies performed yesterday, which are negative for Clostridium difficile and parasite rapid screen. The lactoferrin was elevated. The preliminary stool culture did show normal jesus alberto. Shiga toxin and Campylobacter are negative. RECOMMENDATIONS: 1. Follow up in the office for management of chronic diarrhea. 2. Regarding the incontinence, he can start fiber tablets two Metamucil capsules daily to bulk the stool and give better form to the stool make it easier for the anal sphincter to hold onto. However, given his poor appetite, I will not start the fiber immediately. That can be done in the future. 3. I will sign off. Please call if GI can be of assistance. Job ID: [id number]
--- NOTE | 2019-03-17 13:59 | PRG ---
DATE OF SERVICE: 03/17/2019 SUBJECTIVE: The patient is seen and examined at the bedside. He looks better today. He is moved to telemetry floor. His appetite is fair. OBJECTIVE: VITAL SIGNS: Blood pressure is 125/66, pulse is 86, temperature is 99, respiratory rate is 18, and O2 saturation is 94% on 2 L by nasal cannula. HEENT: His head is atraumatic and normocephalic. Sclerae nonicteric. Oral mucosa is moist. NECK: Supple. LUNGS: Breath sounds somewhat diminished at both bases. HEART: S1 and S2 normal. Somewhat irregular. No S3. No S4. ABDOMEN: Soft and nontender. EXTREMITIES: No clubbing, cyanosis, or edema. NEUROLOGIC: He follows my commands. He moves his all 4 extremities. There are no any motor deficits. LABORATORY DATA: Labs showed hemoglobin of 12.4, hematocrit 37.6. Sodium is 135, potassium 4.4, chloride 103, CO2 of 26, BUN 18, creatinine 1.01, glucose is ranging from 306 to 348, calcium is 9.2, and magnesium is 1.9. Echocardiogram showed poor endocardial windows, LVEF estimated at 40% to 45%, mildly depressed. IMPRESSION: 1. Congestive heart failure. The patient is on Lasix IV push 40 mg twice a day. He is on carvedilol and lisinopril. Cardiology Team saw the patient. Clinically, he is improving. 2. Black tarry stools, resolved. His hemoglobin is trending, is 12.4 from 12.9 yesterday, but overall this is stable and research methodologist does not recommend any further scoping at this point. 3. Acute respiratory failure secondary to flash pulmonary edema. 4. Diabetes mellitus, uncontrolled. The patient is put back on his regimen, which is 35 units of insulin 70/30 every 12 hours, but he still running sugar more than 300. We will make some additional adjustments. 5. Hyperlipidemia. 6. Hypertension. 7. History of cerebrovascular accident in the past. 8. History of cardiac arrhythmias. 9. Chronic constipation with on and off diarrhea addressed with GI team. At this point, Dr. Giron did not have any additional recommendation. PLAN: Plan is to continue current regimen. Cardiology change atenolol to Coreg. Also, started on lisinopril. We will continue his IV Lasix. We will make some adjustments for his diabetic coverage, and we will continue PT. Job ID: [id number]
[2019-03-17] MEDS: Carvedilol 6.25 MG TAB PO SCH (16:08)
[2019-03-17] MEDS: Insulin Regular 300 UNITS/3 ML VIAL SC PRN (18:19)
--- NOTE | 2019-03-17 19:05 | PRG ---
DATE OF SERVICE: 03/17/2019 INTERVAL HISTORY: The patient is doing fine from respiratory standpoint. Denies any current chest pain, nausea, or vomiting. He is getting nebulized medications 3 times a day. Since then, he has not had anymore shortness of breath or wheezing spells. He is coughing up a little bit of white phlegm, but this seems to be improving. Otherwise, there were no events overnight. PHYSICAL EXAMINATION: VITAL SIGNS: Afebrile, pulse 104, blood pressure 123/81, respirations 20, and saturation 94% on 2 L nasal cannula. GENERAL: The patient is awake and alert, in no apparent distress. LUNGS: Decent air entry. Minimal dependent crackles are noted now. Today, he has good air entry with no prolonged expiratory phase or wheezing appreciated. HEART: Normal rate and regular. ABDOMEN: Soft, nontender, nondistended. Bowel sounds are positive. MUSCULOSKELETAL: No cyanosis or clubbing. There is no pitting in the bilateral lower extremities. NEUROLOGIC: Grossly nonfocal. LABORATORY DATA: Hemoglobin 12.4. Basic metabolic profile is also unremarkable with a creatinine of 1.01 and stable. Magnesium 1.9. ASSESSMENT: DIAGNOSTIC DATA: Echocardiogram demonstrates 40% to 45% ejection fraction. Otherwise, there are no significant valvular abnormalities. ASSESSMENT: 1. Acute hypoxic respiratory failure. 2. Chronic obstructive pulmonary disease exacerbation with minimal exacerbation. 3. [id number] systolic and diastolic heart failure. DISCUSSION AND PLAN: The patient is doing fine from respiratory standpoint. At this point, he remains stable for transition out of the hospital. We will continue to diurese into euvolemia which he is fast approaching. He will need 5 days of steroids. I will continue to follow if he remains in-house, but from my perspective, if he has enough strength, he will be ready for transition home. Job ID: [id number]
[2019-03-17] MEDS ORDERED: diphenhydrAMINE 25 MG CAP PO PRN (19:50)
[2019-03-17] MEDS: Lisinopril 10 MG TAB PO SCH (20:20)
[2019-03-17] MEDS: traZODone HCl 50 MG TAB PO PRN (20:20)
[2019-03-18] MEDS: Furosemide 20 MG/2 ML VIAL SLOW IVP SCH ×2 (05:44→13:49)
[2019-03-18] MEDS: Lisinopril 10 MG TAB PO SCH ×2 (09:17→20:26)
[2019-03-18] MEDS: Venlafaxine XR 37.5 MG CAP PO SCH (09:18)
[2019-03-18] MEDS: Aspirin Chewable 81 MG TAB PO SCH (09:18)
[2019-03-18] MEDS: predniSONE 20 MG TAB PO SCH (09:18)
[2019-03-18] MEDS: Potassium Chloride 20 MEQ TAB PO SCH (09:19)
[2019-03-18] MEDS: Carvedilol 6.25 MG TAB PO SCH ×2 (09:19→16:55)
[2019-03-18] MEDS: HumuLIN 70/30 (300 UNITS/3 ML VIAL) SC SCH ×2 (09:20→16:56)
[2019-03-18] MEDS: Pantoprazole 40 MG VIAL IVP SCH ×2 (09:22→20:32)
--- NOTE | 2019-03-18 10:06 | PDOC.CPN ---
- Subjective Date: 03/18/19 Time: 10:07 Interval history: The pt seen and examined. No overnight events. No cardiac complaints. No hematuria or hematochezia. Negative C diff - Objective Allergies/Adverse Reactions: Allergies Allergy/AdvReac Type Severity Reaction Status Date / Time No Known Allergies Allergy Verified 07/07/13 14:33 Visit Medications: Current Medications Albuterol/Ipratropium (Duoneb) 3 ml NEB Q4H PRN PRN Reason: SOB &/or Wheezing Last Admin: 03/16/19 17:12 Dose: 3 ml Albuterol/Ipratropium (Duoneb) 3 ml NEB TID-RT [facility] Last Admin: 03/18/19 06:55 Dose: 3 ml Aspirin (Aspirin Chewable) 81 mg PO DAILY [facility] Last Admin: 03/18/19 09:18 Dose: 81 mg Carvedilol (Coreg) 12.5 mg PO BID-[facility] Last Admin: 03/18/19 09:19 Dose: 12.5 mg Dextrose/Water (Dextrose 50%) 25 gm SLOW IVP PRN PRN PRN Reason: Hypoglycemia Diphenhydramine HCl (Benadryl) 25 mg PO HS PRN PRN Reason: Insomnia Furosemide (Lasix) 40 mg SLOW IVP 0600,1400 [facility] Last Admin: 03/18/19 05:44 Dose: 40 mg Glucagon (Glucagon) 1 mg IM PRN PRN PRN Reason: Hypoglycemia Dextrose/Water (D5w) 1,000 mls @ 0 mls/hr IV .Q0M PRN PRN Reason: Hypoglycemia Insulin Human Isoph/Insulin Regular (Humulin 70/30) 50 units SC BID-[facility] Last Admin: 03/18/19 09:20 Dose: 50 units Insulin Human Regular (Humulin R) 0 units SC .MODERATE SLIDING SC PRN PRN Reason: Moderate Correctional Scale Last Admin: 03/17/19 18:19 Dose: 4 unit Lisinopril (Zestril) 10 mg PO BID [facility] Last Admin: 03/18/19 09:17 Dose: 10 mg Melatonin (Melatonin) 9 mg PO HSPRN PRN PRN Reason: Insomnia Last Admin: 03/16/19 22:56 Dose: 9 mg Ondansetron HCl (Zofran) 4 mg IVP Q6H PRN PRN Reason: Nausea/Vomiting Last Admin: 03/16/19 15:18 Dose: 4 mg Pantoprazole Sodium (Protonix) 40 mg IVP Q12HR [facility] Last Admin: 03/18/19 09:22 Dose: 40 mg Potassium Chloride (K-Dur) 40 meq PO QA-[facility] Last Admin: 03/18/19 09:19 Dose: 40 meq Prednisone (Prednisone) 40 mg PO QA-[facility] Stop: 03/20/19 08:01 Last Admin: 03/18/19 09:18 Dose: 40 mg Trazodone HCl (Desyrel) 50 mg PO HS PRN PRN Reason: Insomnia Last Admin: 03/17/19 20:20 Dose: 50 mg Venlafaxine HCl (Effexor Xr) 37.5 mg PO [facility] Last Admin: 03/18/19 09:18 Dose: 37.5 mg Vital Signs & Weight: Vital Signs Temp Pulse Resp BP BP Pulse Ox 03/18/19 09:19 121/72 03/18/19 09:17 121/72 03/18/19 08:00 97.2 F L 114 H 20 132/89 98 03/18/19 06:55 90 16 98 03/18/19 04:00 97.6 F 57 L 22 H 173/80 H 97 Weight 223 lb 1.6 oz - Physical Exam General: alert & oriented x3 Cardiac: regular rate and rhythm Lungs: decreased breath sounds Skin: clear Musculoskeletal: decreased range of motion - Labs Result Diagrams: 03/17/19 04:42 03/17/19 04:42 Troponin/CKMB Troponin I Less than 0.010 ng/mL (< 0.028) 03/14/19 17:30 - Telemetry Sinus rhythms and dysrhythmias: sinus rhythm - Assessment/Plan Assessment/Plan: 1. Acute on Chronic Diastolic HF - stable with 2LNC; On Coreg (Atenolol was changed to Coreg for hx of CHF) Lisinopril and Lasix 40mg IV BID, which will be changed to PO from tomorrow. m this AM 2. HTN - stable with current med. 3. DM type 2 - managed by PCP 4. HLD - not on statin 5. Hx of AAA - ABD CT in 11/2018 with 1.4x1x2.5cm aaa 6. Hx of Rt ECA in 2004 - last Carotid u/s was last year by Dr Austin per the pt 7. Sleep Apnea - may need Cpap in his room at HS 8. Hx of Prostate Ca with radiation 9. Hx of CVA in 2004 - 10. Chronic diarrhea with s/p hematochezia - checking for C diff; managed by GI 11. Afib - well controlled HR with Coreg 12.5mg BID. JAMIL reviewed * Echo on 03/14/2019 with EF 40-45%, mild MR and TR
[2019-03-18] MEDS: Insulin Regular 300 UNITS/3 ML VIAL SC PRN (13:46)
--- NOTE | 2019-03-18 15:23 | PRG ---
DATE OF SERVICE: 03/18/2019 SUBJECTIVE: The patient is seen and examined at the bedside. He is feeling significantly better. He looks better. He is able to participate in physical therapy sessions. He walked twice to the door and back with PT. His appetite is fair. OBJECTIVE: VITAL SIGNS: Blood pressure is 118/71, pulse is 90, respiratory rate is 16, O2 saturation is 97% on 2 L by nasal cannula, temperature is 97.9. Apparently, the monitoring staff noticed some episodes of bradycardia last night down to 30s on his heart rate. HEENT: His head is atraumatic and normocephalic. Eyes are PERRLA. Sclerae are nonicteric. Oral mucosa is moist. NECK: Supple. LUNGS: Breath sounds somewhat diminished at both bases with bilateral crackles at both bases. HEART: S1, S2 normal. No S3. No S4. Somewhat irregular. ABDOMEN: Soft, nontender. EXTREMITIES: 1+ peripheral edema similar bilaterally. NEUROLOGICAL: No any neurological deficits. LABORATORY DATA: Showed glycemia ranging from 95 to 230. Microbiology, no new findings. IMPRESSION: 1. Congestive heart failure. Continue on his Lasix 40 mg twice a day. Also, carvedilol and lisinopril. 2. Bradycardia. The case was discussed with Dr. Beyer, biological inspector on the case. She recommends additional day of observation. If he gets bradycardic again tonight, he will have her recommendations tomorrow morning. 3. Black tarry stools, resolved. No more problems noted and no scoping intervention was recommended by bass string winder. 4. Acute respiratory failure secondary to flash pulmonary edema, improved to some extent, but the patient still requires O2, although only 2 L by nasal cannula. 5. Diabetes mellitus, improved with increased dose on his 70/30 insulin q.12 hours. 6. Hyperlipidemia. 7. Hypertension. 8. History of cerebrovascular accident in the past. 9. History of cardiac arrhythmias. 10. Chronic constipation with on and off diarrhea. PLAN: The plan is to continue observation since he was bradycardic last night. We are not going to change anything in the regimen. He is on all recommendations per Cardiology. I will try to a get him oxygen to use at home, if he still needs it by tomorrow. We will continue diuresis and continue PT. Job ID: [id number]
[2019-03-18] MEDS ORDERED: Insulin Regular 300 UNITS/3 ML VIAL SC PRN (18:29)
[2019-03-18] MEDS ORDERED: HumaLOG 300 UNITS/3 ML VIAL SC SCH (18:30)
[2019-03-18] MEDS: traZODone HCl 50 MG TAB PO PRN (20:32)
[2019-03-19] MEDS: Carvedilol 6.25 MG TAB PO SCH ×2 (09:12→17:15)
[2019-03-19] MEDS: HumuLIN 70/30 (300 UNITS/3 ML VIAL) SC SCH ×2 (09:13→17:15)
[2019-03-19] MEDS: predniSONE 20 MG TAB PO SCH (09:13)
[2019-03-19] MEDS: Lisinopril 10 MG TAB PO SCH (09:14)
[2019-03-19] MEDS: Venlafaxine XR 37.5 MG CAP PO SCH (09:14)
[2019-03-19] MEDS: Potassium Chloride 20 MEQ TAB PO SCH (09:14)
[2019-03-19] MEDS: Aspirin Chewable 81 MG TAB PO SCH (09:15)
[2019-03-19] MEDS: Furosemide 20 MG TAB PO SCH ×2 (09:15→15:48)
[2019-03-19] MEDS: Pantoprazole 40 MG VIAL IVP SCH (09:15)
--- NOTE | 2019-03-19 09:52 | PDOC.CPN ---
- Subjective Date: 03/19/19 Time: 09:52 Interval history: The pt seen and examined. No overnight events. No cardiac complaints. - Objective Allergies/Adverse Reactions: Allergies Allergy/AdvReac Type Severity Reaction Status Date / Time No Known Allergies Allergy Verified 07/07/13 14:33 Visit Medications: Current Medications Albuterol/Ipratropium (Duoneb) 3 ml NEB Q4H PRN PRN Reason: SOB &/or Wheezing Last Admin: 03/16/19 17:12 Dose: 3 ml Albuterol/Ipratropium (Duoneb) 3 ml NEB TID-RT [facility] Last Admin: 03/19/19 06:28 Dose: Not Given Aspirin (Aspirin Chewable) 81 mg PO DAILY [facility] Last Admin: 03/19/19 09:15 Dose: 81 mg Carvedilol (Coreg) 12.5 mg PO BID[facility] Last Admin: 03/19/19 09:12 Dose: 12.5 mg Dextrose/Water (Dextrose 50%) 25 gm SLOW IVP PRN PRN PRN Reason: Hypoglycemia Diphenhydramine HCl (Benadryl) 25 mg PO HS PRN PRN Reason: Insomnia Furosemide (Lasix) 40 mg PO 0900,1400 [facility] Last Admin: 03/19/19 09:15 Dose: 40 mg Glucagon (Glucagon) 1 mg IM PRN PRN PRN Reason: Hypoglycemia Dextrose/Water (D5w) 1,000 mls @ 0 mls/hr IV .Q0M PRN PRN Reason: Hypoglycemia Insulin Human Isoph/Insulin Regular (Humulin 70/30) 50 units SC BID[facility] Last Admin: 03/19/19 09:13 Dose: 50 units Insulin Human Regular (Humulin R) 0 units SC .AGGRESSIVE SLIDING PRN; Protocol PRN Reason: AGGRESSIVE SLIDING SCALE Lisinopril (Zestril) 10 mg PO BID [facility] Last Admin: 03/19/19 09:14 Dose: 10 mg Melatonin (Melatonin) 9 mg PO HSPRN PRN PRN Reason: Insomnia Last Admin: 03/16/19 22:56 Dose: 9 mg Ondansetron HCl (Zofran) 4 mg IVP Q6H PRN PRN Reason: Nausea/Vomiting Last Admin: 03/16/19 15:18 Dose: 4 mg Pantoprazole Sodium (Protonix) 40 mg IVP Q12HR [facility] Last Admin: 03/19/19 09:15 Dose: 40 mg Potassium Chloride (K-Dur) 40 meq PO QA[facility] Last Admin: 03/19/19 09:14 Dose: 40 meq Prednisone (Prednisone) 40 mg PO QAM[facility] Stop: 03/20/19 08:01 Last Admin: 03/19/19 09:13 Dose: 40 mg Trazodone HCl (Desyrel) 50 mg PO HS PRN PRN Reason: Insomnia Last Admin: 03/18/19 20:32 Dose: 50 mg Venlafaxine HCl (Effexor Xr) 37.5 mg PO [facility] Last Admin: 03/19/19 09:14 Dose: 37.5 mg Vital Signs & Weight: Vital Signs Temp Pulse Resp BP BP Pulse Ox 03/19/19 09:14 166/95 H 03/19/19 09:12 166/95 H 03/19/19 07:56 97.4 F L 74 20 185/86 H 98 03/19/19 04:00 97.5 F L 57 L 20 139/65 95 03/18/19 23:05 114 H 120/76 Weight 223 lb 1.6 oz - Physical Exam General: alert & oriented x3 Cardiac: irregularly regular Skin: brusing Musculoskeletal: decreased range of motion - Labs Result Diagrams: 03/17/19 04:42 03/17/19 04:42 Troponin/CKMB Troponin I Less than 0.010 ng/mL (< 0.028) 03/14/19 17:30 - Telemetry Supraventricular conduction: atrial fibrillation (HR 60-70s with LBBB) - Assessment/Plan Assessment/Plan: 1. Acute on Chronic Diastolic HF - stable with 2LNC; On Coreg (Atenolol was changed to Coreg for hx of CHF) Lisinopril and Lasix 40mg PO BID 2. HTN - stable with current med. 3. DM type 2 - managed by PCP 4. HLD - not on statin 5. Hx of AAA - ABD CT in 11/2018 with 1.4x1x2.5cm aaa 6. Hx of Rt ECA in 2004 - last Carotid u/s was last year by Dr Austin per the pt 7. Sleep Apnea - may need Cpap in his room at HS 8. Hx of Prostate Ca with radiation 9. Hx of CVA in 2004 - 10. Chronic diarrhea with s/p hematochezia - checking for C diff; managed by GI 11. Afib - well controlled HR with Coreg 12.5mg BID. On ASA 81mg qd; not on OAC due to high risk of falls. 12. Bradycardia - Bradycardia at HS possible due to hx of Sleep apnea, but not wearing Cpap at HS. JAMIL reviewed * Echo on 03/14/2019 with EF 40-45%, mild MR and TR
[2019-03-19 16:10] VITALS: BP 122/76; TEMP 97.9
--- NOTE | 2019-03-19 18:29 | PRG ---
DATE OF SERVICE: 03/19/2019 SERVICE: Pulmonary Medicine. INTERVAL HISTORY: The patient's blood sugars have been out of control because of the steroids that we introduced. That being said, he feels that his strength is back to normal. His shortness of breath is at baseline. Otherwise, there has been no interval change to his condition. PHYSICAL EXAMINATION: VITAL SIGNS: Afebrile, pulse 94, blood pressure 122/76, respirations 20, and saturation 96%, currently on room air. GENERAL: The patient is awake and alert, in no apparent distress. LUNGS: Decent air entry. Minimal crackles are present. Slightly prolonged expiratory phase, but no wheezing is present. HEART: Normal rate and regular. ABDOMEN: Soft, nontender, and nondistended. Bowel sounds are positive. MUSCULOSKELETAL: No cyanosis or clubbing. No pitting in the bilateral lower extremities. NEUROLOGIC: Grossly nonfocal. LABORATORY DATA: Blood sugars range from 95 to 410. ASSESSMENT: 1. Acute hypoxic respiratory failure. 2. Chronic obstructive pulmonary disease with mild exacerbation. 3. Acute on chronic systolic and diastolic heart failure. DISCUSSION AND PLAN: From a purely respiratory standpoint, the patient remains stable for transition out of the hospital. At this point, I will sign off. Since he has returned to baseline from breathing standpoint, we could interrupt steroids. Please call if the patient develops any significant respiratory deterioration. Job ID: [id number]
--- NOTE | 2019-03-19 22:01 | DIS ---
DATE OF ADMISSION: 03/14/2019 DATE OF DISCHARGE: 03/19/2019 FINAL DIAGNOSES AT THE TIME OF DISCHARGE: 1. Congestive heart failure that is acute on chronic diastolic. 2. Hypertension. 3. Diabetes mellitus type 2. 4. Hyperlipidemia. 5. History of abdominal aortic aneurysm. 6. History of right DISTRIBUTION CENTER MANAGER in 2004. 7. Sleep apnea. 8. History of prostate cancer, status post radiation. 9. History of cerebrovascular accident in 2004. 10. Hematochezia, resolved. 11. Atrial fibrillation with well-controlled heart rate. 12. Bradycardia, resolved. 13. Acute respiratory failure secondary to flash pulmonary edema, resolved. CONSULTANTS: 1. John Arias MD, Pulmonary Service. 2. Broderick Giron MD, Gastrointestinal Service. 3. Cheo Herron MD, Cardiovascular Service. 4. Ester Beyer MD with Ms. Vieyra, Physician [employer] Service. HOSPITAL COURSE: The patient is an 88-year-old male, who presented to the emergency room with shortness of breath. His past medical history is positive for congestive heart failure, cardiac arrhythmias, atrial fibrillation, diabetes mellitus type 2, peripheral neuropathy, CVA, hyperlipidemia, among others, shortness of breath started the same day. The patient was placed on CPAP and then on continuous nebulizer treatments. He was given IV Lasix during transport to the emergency room. Also, he was found to have black dark stools. While in the emergency room getting evaluated, he was started on IV pantoprazole for possible GI bleeding. At the time of ER evaluation, his ABGs showed pH of 7.389, pCO2 of 34, PO2 of 84. This was done on BiPAP. Chest x-ray showed cardiomegaly with severe chronic changes with prominent infrahilar lung markings. His occult blood on stool was positive. Beta natriuretic peptide was elevated at 712 and white count was 11.3, hemoglobin 13.5, platelet count 214. Magnesium 1.4. The patient was admitted to the IM with working diagnosis of acute respiratory failure probably secondary to flash pulmonary edema. The GI Service was consulted for possible endoscopy, but the patient was seen by Dr. Giron and he chose to treat the patient conservatively to avoid any scoping because of his age and his symptoms subsided very quickly. His electrolyte deficiencies were replaced. He was started on IV Lasix and gradually improved. He was seen by Dr. Herron for Cardiology consultation, who recommended further continuation of his diuresis. Continue aspirin, atenolol and amlodipine, and he recommended conservative approach to this patient's condition. The patient was fluid overloaded and gradually with diuresis, his respiratory status improved. His echocardiogram was done, which came back and LVEF was estimated at 40% to 45%. The patient was improved to the point that he was transferred out from intensive care unit to telemetry floor. He was started on steroids by casting machine set up operator and continued on PT. During this hospitalization, he had one episode of bradycardia. At night, his pulse went down to 30s, but this was isolated event because he was watched for additional 24 hours after that and the episode never came back, so he is doing well. He is going home with Home Health. He is going to receive PT through this agency. He will stay on heart healthy diet. Activity as tolerated. MEDICATIONS: At the time of discharge: 1. Furosemide 40 mg twice a day. 2. Carvedilol 12.5 mg twice a day. 3. DuoNeb three times a day. 4. Lisinopril 10 mg twice a day. 5. Omeprazole 20 mg twice a day. 6. Prednisone 40 mg once a day for 2 days only. 7. Aspirin 81 mg once a day. 8. Venlafaxine 37.5 mg once a day. 9. Trazodone 50 mg at bedtime. 10. Potassium chloride 40 mEq once a day. 11. Folic acid 1000 mcg daily. 12. He is going to use insulin 50 units and this is NPH and he will continue his p.r.n. vitamins and minerals. FOLLOWUP: He will follow up with primary care physician in 1 week and he will call Dr. Arias's office and Dr. Beyre' office to set up followup appointments with them. Job ID: [id number]
== END 2019-03-19 18:05 | disposition home health service (06) | DRG 291 ==
LOC: ERS 17:17 → IMCU/EMU 20:44 → 2NO 21:57
PROVIDERS: ADMIT Internal Medicine; ATTEND Internal Medicine
DX: I11.0 Hypertensive heart disease with heart failure (principal); J96.01 Acute respiratory failure with hypoxia; J44.1 Chronic obstructive pulmonary disease with (acute) exacerbation; I50.43 Acute on chronic combined systolic (congestive) and diastolic (congestive) heart failure; I48.91 Unspecified atrial fibrillation; E11.42 Type 2 diabetes mellitus with diabetic polyneuropathy; E78.5 Hyperlipidemia, unspecified; K59.09 Other constipation; D64.9 Anemia, unspecified; Z85.828 Personal history of other malignant neoplasm of skin; Z87.891 Personal history of nicotine dependence; Z86.73 Personal history of transient ischemic attack (TIA), and cerebral infarction without residual deficits; Z90.49 Acquired absence of other specified parts of digestive tract; Z98.890 Other specified postprocedural states; E78.00 Pure hypercholesterolemia, unspecified; Z85.46 Personal history of malignant neoplasm of prostate; E83.42 Hypomagnesemia; G47.30 Sleep apnea, unspecified; K52.9 Noninfective gastroenteritis and colitis, unspecified
CPT/HCPCS: 36415; 36416; 71045; 71275; 74177; 80048; 80053; 80306; 80307; 81003; 81015; 82274; 82805; 83630; 83735; 83880; 84100; 84443; 84484; 85014; 85018; 85025; 85379; 86850; 86900; 86901; 87045; 87046; 87324; 87328; 87329; 87427; 87449; 93005; 93306; 93798; 94640; 96365; 96366; 96367; 96368; 96375; 99292; C9113; J0696; J1815; J1940; J2405; J3475; J3490; J7512; J7620; Q9966

== ENCOUNTER 2019-12-17 13:49 | Outpatient (CLI) | payer MEDICARE, OTHER ==
--- NOTE | 2019-12-17 15:00 | CT ---
CT Abdomen W Con: 12/17/2019 12:00 AM CLINICAL INFORMATION: Abdominal aortic aneurysm COMPARISON: 03/04/2019, 04/11/2018, 05/12/2016 TECHNIQUE: Multiple contiguous axial images were obtained and a CT of the abdomen with IV contrast. Coronal and sagittal reformats were performed. FINDINGS: Lower Chest: within normal limits. Abdomen: Liver: within normal limits. Bile Ducts: Normal caliber. Gallbladder: Removed Pancreas: within normal limits. Spleen: within normal limits. Adrenals: within normal limits. Kidneys: within normal limits. Peritoneum: No ascites or free air, no fluid collection. Bowel: Normal caliber. Mesentery and Retroperitoneum: No enlarged mesenteric or retroperitoneal lymph nodes. Vessels: There is a stable outpouching along the anterior aspect of the infrarenal aorta. The aorta m easures 3.1 cm in greatest dimension. Atherosclerotic calcifications are seen. The celiac trunk is patent without significant atherosclerotic disease. The SMA and renal arteries show bulky osteal athe rosclerotic disease. Abdominal Wall: within normal limits. Bones: Degenerative changes in the spine. IMPRESSION: 1. Stable focal area of aneurysmal dilatation of the infrarenal aorta 2. Diffuse atherosclerotic disease with significant ostial calcification in the SMA and bilateral ashish al arteries.
== END 2019-12-17 13:50 | disposition home or self-care (01) ==
LOC: BICCT 13:49
PROVIDERS: ATTEND Thoracic Surgery (Cardiothoracic Vascular Surgery)
DX: I71.4 Abdominal aortic aneurysm, without rupture (principal); K55.1 Chronic vascular disorders of intestine; I70.8 Atherosclerosis of other arteries
CPT/HCPCS: 74160; 82565

== ENCOUNTER 2020-04-21 14:55 | Emergency (ER) | payer MEDICARE, OTHER ==
[2020-04-21 16:08] LABS: #Eosinphils 0.3 thou/uL (0.0-0.7); #Lymphocytes 1.5 thou/uL (1.20-3.40); #Monocytes 0.4 thou/uL (0.11-0.59); #Neutrophils 5.4 thou/uL (1.40-6.50); %Basophils 0.2 % (0.0-1.0); %Eosinophils 4.3 % (0.0-10.0); %Lymphocytes 19.1 % (21.0-51.0); %Monocytes 5.7 % (0.0-10.0); %Neutrophils 70.7 % (42.0-75.0); Hemoglobin 10.9 g/dL (14.0-18.0); Mean Corpuscular HGB CONC 33.1 g/dL (32.0-36.0); Mean Corpuscular Hemoglobin 31.3 pg (27.0-31.0); Mean Corpuscular Volume 94.6 fL (78.0-98.0); Platelet Count 159 thou/uL (130-400); RBC Distribution Width 12.8 % (11.5-14.5); Red Blood Cell (RBC) Count 3.47 mill/uL (4.70-6.10); White Blood Cell (WBC) Count 7.6 thou/uL (4.8-10.8)
--- NOTE | 2020-04-21 16:19 | RAD ---
Chest one view HISTORY: Dyspnea. COMPARISON: 03/15/2019. FINDINGS: Cardiac silhouette is magnified and upper limits of normal in size. Pulmonary vasculature i s now within normal limits, significantly improved from the prior study. Mediastinum is midline with aortic calcification. No lobar consolidation or evidence of pneumothorax. IMPRESSION : Cardiomegaly, stable. No active cardiopulmonary abnormalities are demonstrated. Significant improvement compared to the teagan or year's exam. Atherosclerosis.
[2020-04-21 16:28] LABS: ALT (SGPT) 17 U/L (8-55); AST (SGOT) 25 U/L (5-34); Albumin 3.9 g/dL (3.4-4.8); Alkaline Phosphatase 71 U/L (40-110); Anion Gap 12 mmol/L (10-20); BUN (Urea Nitrogen) 20 mg/dL (8.4-25.7); Bilirubin, Total 0.8 mg/dL (0.2-1.2); Calc. Creatinine Clearance 0 mL/min (70-130); Calcium 8.7 mg/dL (7.8-10.44); Carbon Dioxide 28 mmol/L (23-31); Chloride 103 mmol/L (98-107); Estimated GFR-MDRD 54; Glucose 330 mg/dL (83-110); Protein, Total 6.9 g/dL (5.8-8.1); Sodium 139 mmol/L (136-145)
== END 2020-04-21 19:07 | disposition home or self-care (01) ==
LOC: ERS 14:55
DX: R06.00 Dyspnea, unspecified (principal); I11.0 Hypertensive heart disease with heart failure; I50.9 Heart failure, unspecified; I48.91 Unspecified atrial fibrillation; E11.40 Type 2 diabetes mellitus with diabetic neuropathy, unspecified; E78.5 Hyperlipidemia, unspecified; E78.00 Pure hypercholesterolemia, unspecified; Z87.891 Personal history of nicotine dependence; Z79.899 Other long term (current) drug therapy
CPT/HCPCS: 71045; 80053; 83880; 84484; 85025; 93005

== ENCOUNTER 2020-10-12 11:33 | Outpatient (CLI) | payer MEDICARE, OTHER | END 2020-10-12 11:34 | disposition home or self-care (01) | LOC: BICCT 11:33 | PROVIDERS: ATTEND Thoracic Surgery (Cardiothoracic Vascular Surgery) | DX: I71.4 Abdominal aortic aneurysm, without rupture (principal); I70.90 Unspecified atherosclerosis; K57.30 Diverticulosis of large intestine without perforation or abscess without bleeding; J90 Pleural effusion, not elsewhere classified | CPT/HCPCS: 74176 ==

== ENCOUNTER 2020-10-25 10:48 | Inpatient (IN) | payer MEDICARE, OTHER ==
[2020-10-25 11:50] LABS: Bilirubin Negative (Negative); Blood, Urine Negative (Negative); Clarity Clear (Clear); Glucose, Urine (Dipstick) 50 mg/dL (Negative); Ketone, Urine Negative (Negative); Leukocyte Negative Leu/uL (Negative); Nitrite Negative (Negative); Protein, Urine (Dipstick) Negative (Neg-Trace); Specific Gravity, Urine 1.013 (1.002-1.036); Urobilinogen Normal mg/dL (Less than 2)
[2020-10-25 11:52] LABS: #Eosinphils 0.2 thou/uL (0.0-0.7); #Lymphocytes 1.5 thou/uL (1.20-3.40); #Monocytes 0.4 thou/uL (0.11-0.59); #Neutrophils 4.5 thou/uL (1.40-6.50); %Basophils 0.7 % (0.0-1.0); %Eosinophils 3.3 % (0.0-10.0); %Lymphocytes 23.1 % (21.0-51.0); %Monocytes 5.3 % (0.0-10.0); %Neutrophils 67.6 % (42.0-75.0); Hemoglobin 11.3 g/dL (14.0-18.0); Mean Corpuscular HGB CONC 32.7 g/dL (32.0-36.0); Mean Corpuscular Hemoglobin 32.1 pg (27.0-31.0); Mean Corpuscular Volume 98.2 fL (78.0-98.0); Mean Platelet Volume 6.8 fL (7.4-10.4); Platelet Count 164 thou/uL (130-400); RBC Distribution Width 16.3 % (11.5-14.5); Red Blood Cell (RBC) Count 3.53 mill/uL (4.70-6.10); White Blood Cell (WBC) Count 6.6 thou/uL (4.8-10.8)
[2020-10-25 12:00] LABS: Amphetamine Not Detected (NotDetected); Barbiturates Screen Not Detected (NotDetected); Benzodiazepine Screen Not Detected (NotDetected); Cocaine Metabolite Screen Not Detected (NotDetected); Medtox Control Line Valid? VALID (VALID); Medtox Reader # READER 1; Methadone Not Detected (NotDetected); Methamphetamine Not Detected (NotDetected); Opiate Screen Not Detected (NotDetected); Oxycodone Screen Not Detected (NotDetected); Phencyclidine (PCP) Not Detected (NotDetected); THC/Cannabinoid Screen Not Detected (NotDetected); Tricyclic Screen Not Detected (NotDetected)
[2020-10-25 12:12] LABS: Acetaminophen Less than 6.0 mcg/mL (10.0-30.0); Alcohol Less than 10 mg/dL (Less than 10); Salicylate Less than 8.0 mg/dL (15.0-30.0)
[2020-10-25 12:15] LABS: ALT (SGPT) 30 U/L (8-55); AST (SGOT) 30 U/L (5-34); Alkaline Phosphatase 88 U/L (40-110); Anion Gap 14 mmol/L (10-20); BUN (Urea Nitrogen) 15 mg/dL (8.4-25.7); Bilirubin, Total 0.9 mg/dL (0.2-1.2); CK (CPK) 26 U/L (30-200); Calc. Creatinine Clearance 0 mL/min (70-130); Calcium 8.4 mg/dL (7.8-10.44); Carbon Dioxide 23 mmol/L (23-31); Chloride 107 mmol/L (98-107); Globulin 2.6 g/dL (2.4-3.5); Glucose 195 mg/dL (83-110); Lipase 9 U/L (8-78); Potassium 3.6 mmol/L (3.5-5.1); Protein, Total 5.6 g/dL (5.8-8.1); Sodium 140 mmol/L (136-145)
[2020-10-25] MEDS ORDERED: Sodium Chloride 0.9% 1,000 ML IV SCH (14:30)
[2020-10-25] MEDS ORDERED: Ondansetron ODT 4 MG TAB SL PRN (14:30)
[2020-10-25] MEDS ORDERED: Ondansetron PF 4 MG/2 ML Vial IVP PRN (14:30)
[2020-10-25 14:35] VITALS: BMI 28.8
[2020-10-25] MEDS ORDERED: Acetaminophen 325 MG TAB PO PRN (15:31)
[2020-10-25 15:54] LABS: Troponin I 0.018 ng/mL (< 0.028)
[2020-10-25] MEDS ORDERED: Non-Formulary Item 1 EACH (Lifitegrast [Xiidra] 1 EACH Droperette) FS PRN (16:42)
[2020-10-25] MEDS ORDERED: Citrucel 500 MG TAB PO PRN (16:42)
[2020-10-25] MEDS ORDERED: Acetaminophen ER (8hr) 650 MG TAB PO PRN (16:42)
[2020-10-25] MEDS ORDERED: guaiFENesin ER 600 MG TAB PO PRN (16:42)
[2020-10-25] MEDS ORDERED: Dextrose 5% in Water 1,000 ML IV PRN (16:56)
[2020-10-25] MEDS ORDERED: Dextrose 50% Abboject 50 ML SYRINGE SLOW IVP PRN (16:56)
[2020-10-25 17:37] LABS: Glucose 189 mg/dL (83-110)
[2020-10-25 18:04] LABS: Troponin I 0.023 ng/mL (< 0.028)
[2020-10-25] MEDS: Insulin Regular 300 UNITS/3 ML VIAL SC PRN (18:32)
[2020-10-25] MEDS: Mometasone 100 MCG/Formoterol 5 MCG 120 PUFF INHALER INH SCH (19:55)
[2020-10-25 21:09] LABS: Glucose 203 mg/dL (83-110)
[2020-10-25] MEDS: Lisinopril 10 MG TAB PO SCH (21:10)
[2020-10-25] MEDS: Atorvastatin Calcium 40 MG TAB PO SCH (21:10)
[2020-10-25] MEDS: busPIRone HCl 5 MG TAB PO SCH (21:10)
[2020-10-26 05:33] LABS: #Basophils 0.1 thou/uL (0.0-0.2); #Eosinphils 0.3 thou/uL (0.0-0.7); #Lymphocytes 1.4 thou/uL (1.20-3.40); #Monocytes 0.4 thou/uL (0.11-0.59); #Neutrophils 6.4 thou/uL (1.40-6.50); %Basophils 0.8 % (0.0-1.0); %Eosinophils 3.1 % (0.0-10.0); %Lymphocytes 15.9 % (21.0-51.0); %Monocytes 5.2 % (0.0-10.0); Hemoglobin 12.1 g/dL (14.0-18.0); Mean Corpuscular HGB CONC 32.1 g/dL (32.0-36.0); Mean Corpuscular Hemoglobin 31.4 pg (27.0-31.0); Mean Corpuscular Volume 97.7 fL (78.0-98.0); Platelet Count 182 thou/uL (130-400); RBC Distribution Width 16.1 % (11.5-14.5); Red Blood Cell (RBC) Count 3.87 mill/uL (4.70-6.10); White Blood Cell (WBC) Count 8.5 thou/uL (4.8-10.8)
[2020-10-26 05:52] LABS: Anion Gap 13 mmol/L (10-20); BUN (Urea Nitrogen) 15 mg/dL (8.4-25.7); Calc. Creatinine Clearance 82 mL/min (70-130); Calcium 8.6 mg/dL (7.8-10.44); Carbon Dioxide 24 mmol/L (23-31); Chloride 108 mmol/L (98-107); Glucose 200 mg/dL (83-110); Potassium 3.6 mmol/L (3.5-5.1); Sodium 141 mmol/L (136-145)
[2020-10-26] MEDS: Mometasone 100 MCG/Formoterol 5 MCG 120 PUFF INHALER INH SCH ×2 (07:35→20:11)
[2020-10-26 07:42] LABS: Glucose 215 mg/dL (83-110)
[2020-10-26] MEDS: Enoxaparin Sodium 40 MG/0.4 ML SYRINGE SC SCH (08:12)
[2020-10-26] MEDS: Furosemide 20 MG TAB PO SCH (08:13)
[2020-10-26] MEDS: Carvedilol 25 MG TAB PO SCH (08:13)
[2020-10-26] MEDS: Amlodipine 10 MG TAB PO SCH (08:13)
[2020-10-26] MEDS: Calcium Carbonate 500 MG TAB PO SCH (08:13)
[2020-10-26] MEDS: Aspirin Chewable 81 MG TAB PO SCH (08:13)
[2020-10-26] MEDS: busPIRone HCl 5 MG TAB PO SCH ×2 (08:13→21:43)
[2020-10-26] MEDS: Lisinopril 10 MG TAB PO SCH ×2 (08:13→21:43)
[2020-10-26] MEDS: Potassium Chloride 20 MEQ TAB PO SCH (08:14)
[2020-10-26 15:20] LABS: Hemoglobin A1c 7.9 % (4.0-6.0)
[2020-10-26] MEDS ORDERED: HumuLIN 70/30 (300 UNITS/3 ML VIAL) SC SCH (17:00)
[2020-10-26] MEDS: HumuLIN 70/30 (300 UNITS/3 ML VIAL) SC SCH (17:04)
[2020-10-26] MEDS ORDERED: OLANZapine 10 MG VIAL IM SCH ×2 (21:00→23:45)
[2020-10-26] MEDS ORDERED: Non-Formulary Item 1 EACH (Carvedilol [Carvedilol] 12.5 MG Tablet) PO SCH (21:00)
[2020-10-26] MEDS: Sterile Water 10 ML VIAL FS PRN (21:33)
[2020-10-26] MEDS: Atorvastatin Calcium 40 MG TAB PO SCH (21:43)
[2020-10-26] MEDS: Carvedilol 6.25 MG TAB PO SCH (21:46)
[2020-10-27] MEDS: Sterile Water 10 ML VIAL FS PRN
[2020-10-27] MEDS: Insulin Regular 300 UNITS/3 ML VIAL SC PRN ×2 (06:28→21:51)
[2020-10-27] MEDS: Mometasone 100 MCG/Formoterol 5 MCG 120 PUFF INHALER INH SCH ×2 (07:11→20:06)
[2020-10-27] MEDS ORDERED: HumuLIN 70/30 (300 UNITS/3 ML VIAL) SC SCH (09:00)
[2020-10-27 09:40] LABS: #Basophils 0.1 thou/uL (0.0-0.2); #Eosinphils 0.1 thou/uL (0.0-0.7); #Lymphocytes 1.4 thou/uL (1.20-3.40); #Monocytes 0.3 thou/uL (0.11-0.59); #Neutrophils 7.6 thou/uL (1.40-6.50); %Basophils 0.6 % (0.0-1.0); %Eosinophils 0.8 % (0.0-10.0); %Lymphocytes 14.4 % (21.0-51.0); %Monocytes 3.2 % (0.0-10.0); %Neutrophils 80.9 % (42.0-75.0); Hemoglobin 12.7 g/dL (14.0-18.0); Mean Corpuscular HGB CONC 32.5 g/dL (32.0-36.0); Mean Corpuscular Hemoglobin 31.9 pg (27.0-31.0); Mean Corpuscular Volume 97.9 fL (78.0-98.0); Mean Platelet Volume 6.7 fL (7.4-10.4); Platelet Count 184 thou/uL (130-400); RBC Distribution Width 16.1 % (11.5-14.5); White Blood Cell (WBC) Count 9.4 thou/uL (4.8-10.8)
[2020-10-27 09:59] LABS: Anion Gap 12 mmol/L (10-20); BUN (Urea Nitrogen) 14 mg/dL (8.4-25.7); Calc. Creatinine Clearance 84 mL/min (70-130); Calcium 9.1 mg/dL (7.8-10.44); Carbon Dioxide 26 mmol/L (23-31); Chloride 108 mmol/L (98-107); Glucose 239 mg/dL (83-110); Potassium 3.6 mmol/L (3.5-5.1); Sodium 142 mmol/L (136-145)
[2020-10-27] MEDS: Enoxaparin Sodium 40 MG/0.4 ML SYRINGE SC SCH (10:00)
[2020-10-27] MEDS: HumuLIN 70/30 (300 UNITS/3 ML VIAL) SC SCH ×2 (10:08→16:55)
[2020-10-27 10:10] LABS: Actual Bicarbonate (HCO3a) 26.9 mEq/L (22-28); Base Excess (BEa) 1.3 mEq/L (-2.0 to +3.0); CO2 Tension 46.6 mmHg (35.0-45.0); Calcium, Ionized (arterial) 1.18 mmol/L (1.12-1.30); Carboxyhemoglobin (COHb) 0.6 gm% (0.0-3.0); Hemoglobin (Hb) 12.5 g/dL (14.0-18.0); O2 Tension (PaO2), arterial 74.4 mmHg (> 60.0); Potassium - ABG Lab 3.61 mmol/L (3.70-5.30); pH, Arterial 7.38 (7.35-7.45)
[2020-10-27 10:11] LABS: Puncture Site RRA
[2020-10-27] MEDS: Potassium Chloride 20 MEQ TAB PO SCH (12:42)
[2020-10-27] MEDS: Furosemide 20 MG TAB PO SCH (12:42)
[2020-10-27] MEDS: Lisinopril 10 MG TAB PO SCH ×2 (12:43→21:50)
[2020-10-27] MEDS: Aspirin Chewable 81 MG TAB PO SCH (12:43)
[2020-10-27] MEDS: Calcium Carbonate 500 MG TAB PO SCH (12:43)
[2020-10-27] MEDS: Amlodipine 10 MG TAB PO SCH (12:43)
[2020-10-27] MEDS: busPIRone HCl 5 MG TAB PO SCH (12:44)
[2020-10-27] MEDS: Carvedilol 25 MG TAB PO SCH (12:44)
[2020-10-27 21:08] LABS: Bilirubin Negative (Negative); Blood, Urine Negative (Negative); Clarity Clear (Clear); Glucose, Urine (Dipstick) 70 mg/dL (Negative); Ketone, Urine Negative (Negative); Leukocyte Negative Leu/uL (Negative); Nitrite Negative (Negative); Protein, Urine (Dipstick) Negative (Neg-Trace); Specific Gravity, Urine 1.013 (1.002-1.036); Urobilinogen Normal mg/dL (Less than 2)
[2020-10-27] MEDS: Atorvastatin Calcium 40 MG TAB PO SCH (21:46)
[2020-10-27] MEDS: Carvedilol 6.25 MG TAB PO SCH (21:51)
[2020-10-28] MEDS: Insulin Regular 300 UNITS/3 ML VIAL SC PRN ×2 (06:14→20:53)
[2020-10-28] MEDS: Mometasone 100 MCG/Formoterol 5 MCG 120 PUFF INHALER INH SCH ×2 (08:02→18:23)
[2020-10-28] MEDS: Calcium Carbonate 500 MG TAB PO SCH (09:41)
[2020-10-28] MEDS: Lisinopril 10 MG TAB PO SCH ×2 (09:41→20:49)
[2020-10-28] MEDS: Potassium Chloride 20 MEQ TAB PO SCH (09:42)
[2020-10-28] MEDS: Aspirin Chewable 81 MG TAB PO SCH (09:42)
[2020-10-28] MEDS: Carvedilol 25 MG TAB PO SCH (09:42)
[2020-10-28] MEDS: Amlodipine 10 MG TAB PO SCH (09:42)
[2020-10-28] MEDS: Furosemide 20 MG TAB PO SCH (09:42)
[2020-10-28] MEDS: Enoxaparin Sodium 40 MG/0.4 ML SYRINGE SC SCH (09:43)
[2020-10-28] MEDS: HumuLIN 70/30 (300 UNITS/3 ML VIAL) SC SCH ×2 (09:44→17:06)
[2020-10-28] MEDS: Carvedilol 6.25 MG TAB PO SCH (20:49)
[2020-10-28] MEDS: Atorvastatin Calcium 40 MG TAB PO SCH (20:49)
[2020-10-29] MEDS: Insulin Regular 300 UNITS/3 ML VIAL SC PRN ×2 (05:38→11:32)
[2020-10-29] MEDS: Mometasone 100 MCG/Formoterol 5 MCG 120 PUFF INHALER INH SCH (08:19)
[2020-10-29] MEDS: Enoxaparin Sodium 40 MG/0.4 ML SYRINGE SC SCH (08:27)
[2020-10-29] MEDS: Calcium Carbonate 500 MG TAB PO SCH (08:27)
[2020-10-29] MEDS: Potassium Chloride 20 MEQ TAB PO SCH (08:28)
[2020-10-29] MEDS: Aspirin Chewable 81 MG TAB PO SCH (08:28)
[2020-10-29] MEDS: Amlodipine 10 MG TAB PO SCH (08:29)
[2020-10-29] MEDS: Lisinopril 10 MG TAB PO SCH (08:30)
[2020-10-29] MEDS: Carvedilol 25 MG TAB PO SCH (08:30)
[2020-10-29] MEDS: Furosemide 20 MG TAB PO SCH (08:30)
[2020-10-29] MEDS: HumuLIN 70/30 (300 UNITS/3 ML VIAL) SC SCH (08:56)
[2020-10-29 11:31] VITALS: TEMP 98
[2020-10-29 13:00] VITALS: BP 130/67
== END 2020-10-29 13:45 | disposition home health service (06) | DRG 917 ==
LOC: ERS 10:48 → 2SE 13:32
PROVIDERS: ADMIT Internal Medicine; ATTEND Internal Medicine
DX: T43.591A Poisoning by other antipsychotics and neuroleptics, accidental (unintentional), initial encounter (principal); G92 Toxic encephalopathy; I50.22 Chronic systolic (congestive) heart failure; I42.9 Cardiomyopathy, unspecified; E11.65 Type 2 diabetes mellitus with hyperglycemia; I11.0 Hypertensive heart disease with heart failure; E78.5 Hyperlipidemia, unspecified; E11.42 Type 2 diabetes mellitus with diabetic polyneuropathy; E78.00 Pure hypercholesterolemia, unspecified; T43.211A Poisoning by selective serotonin and norepinephrine reuptake inhibitors, accidental (unintentional), initial encounter; E11.51 Type 2 diabetes mellitus with diabetic peripheral angiopathy without gangrene; I48.0 Paroxysmal atrial fibrillation; E66.01 Morbid (severe) obesity due to excess calories; Z68.28 Body mass index [BMI] 28.0-28.9, adult; Z85.46 Personal history of malignant neoplasm of prostate; Z92.3 Personal history of irradiation; Z86.73 Personal history of transient ischemic attack (TIA), and cerebral infarction without residual deficits; Z90.49 Acquired absence of other specified parts of digestive tract; Z87.891 Personal history of nicotine dependence; Z79.899 Other long term (current) drug therapy; Z79.82 Long term (current) use of aspirin; Z79.51 Long term (current) use of inhaled steroids; Z79.4 Long term (current) use of insulin; Z85.828 Personal history of other malignant neoplasm of skin
CPT/HCPCS: 36415; 36416; 36600; 70450; 70551; 71045; 74230; 80048; 80053; 80306; 80307; 81003; 82140; 82550; 82805; 82947; 83036; 83690; 83880; 84443; 84484; 85025; 87086; 93005; 93306; 95712; 95819; 95957; J1650; J1815; J2358

== ENCOUNTER 2021-01-04 13:58 | Emergency (ER) | payer MEDICARE, OTHER | END 2021-01-04 14:40 | disposition home or self-care (01) | LOC: ERS 13:58 | DX: S52.124A Nondisplaced fracture of head of right radius, initial encounter for closed fracture (principal); I48.91 Unspecified atrial fibrillation; E11.42 Type 2 diabetes mellitus with diabetic polyneuropathy; E78.5 Hyperlipidemia, unspecified; E78.00 Pure hypercholesterolemia, unspecified; I11.0 Hypertensive heart disease with heart failure; I50.9 Heart failure, unspecified; Z86.73 Personal history of transient ischemic attack (TIA), and cerebral infarction without residual deficits; Z87.891 Personal history of nicotine dependence; Z79.82 Long term (current) use of aspirin; Z79.899 Other long term (current) drug therapy; W19.XXXA Unspecified fall, initial encounter | CPT/HCPCS: 24650 ==